=== PATIENT | female | born 1975 | race Caucasian/White ===

== ENCOUNTER → 2016-08-24 | Outpatient (CLI) | payer OTHER ==
[~2016-08-24] MED LIST: ALBUAER2 INH; CHOL400T PO; LEVO200T6 PO; LEVO50TA6 PO; LPR25 PO; MTR600X PO; SNG10 PO
[2016-08-24 09:54] LABS: C-REACTIVE PROTEIN 0.42 mg/dl (0-0.29); THYROID STIMULATING HORMONE 2.34 uIu/ml (0.300-4.500)
[2016-08-24 14:28] LABS: LYME DISEASE AB IGG NEG (NEG); LYME DISEASE AB IGM NEG (NEG)
[2016-08-28 14:28] LABS: CATECH NOREPINEPRHINE 499 pg/mL
== END | disposition home or self-care (01) ==
LOC: C.LABBC 07:27
PROVIDERS: ATTEND Internal Medicine Geriatric Medicine
DX: E03.9 Hypothyroidism, unspecified (principal); R53.83 Other fatigue; R00.2 Palpitations

== ENCOUNTER → 2016-08-25 | Outpatient (CLI) | payer OTHER ==
--- NOTE | 2016-08-25 10:53 | DIAGNOSTIC IMAGING REPORT ---
THYROID ULTRASOUND HISTORY: E03.9 [id number] [id number] COMPARISON: None. FINDINGS: Right lobe: 3.2 x 1.2 x 1.0 cm. The gland is heterogeneously hypoechoic. No definite nodules. Left lobe: 3.4 x 1.1 x 1.0 cm. The gland is heterogeneously hypoechoic. No definite nodules. Isthmus: 2 mm in thickness No nodules. IMPRESSION: Slightly atrophic and hypoechoic thyroid gland. No definite nodules. Electronically signed by: Rogelio Joyner M.D. 08/25/2016 10:52 AM Dictated Date/Time: 08/25/2016 10:51 AM
== END | disposition home or self-care (01) ==
LOC: C.ULTR 10:24
PROVIDERS: ATTEND Internal Medicine Geriatric Medicine
DX: R53.83 Other fatigue (principal); E03.4 Atrophy of thyroid (acquired)

== ENCOUNTER → 2016-10-01 | Outpatient (CLI) | payer OTHER ==
[~2016-10-01] MED LIST changes: +OPTIRAY 320 IV PRN
--- NOTE | 2016-10-01 17:34 | DIAGNOSTIC IMAGING REPORT ---
ABDOMEN AND PELVIS CT WITH IV AND ORAL CONTRAST CT DOSE: 1549.17 mGy.cm HISTORY: R10.9 Flank painK62.5 Bright red blood per [id number] Epigaster TECHNIQUE: Multiaxial CT images of the abdomen and pelvis were performed following the use of intravenous and oral contrast. COMPARISON STUDY: None. FINDINGS: Lung bases are clear liver is uniform in appearance. There is a solitary gallstone. Spleen is uniform. Pancreas is uniform. Kidneys are negative for hydronephrosis. There is a 1.5 mm nonobstructing mid pole left renal calcification. Bowel pattern is nonobstructive. Bladder is midline. Uterus is anteflexed. There is no evidence for ovarian enlargement. IMPRESSION: Negative study abdomen and pelvis. Delayed note is made of a gallstone as well as a punctate nonobstructing left renal calcification Normal appendix Electronically signed by: Brayan Lee M.D. 10/01/2016 5:32 PM Dictated Date/Time: 10/01/2016 5:30 PM
== END | disposition home or self-care (01) ==
LOC: C.CTS 15:36
PROVIDERS: ATTEND Family Medicine
DX: K62.5 Hemorrhage of anus and rectum (principal); Q82.8 Other specified congenital malformations of skin; R10.13 Epigastric pain; R19.8 Other specified symptoms and signs involving the digestive system and abdomen; N20.0 Calculus of kidney; K80.20 Calculus of gallbladder without cholecystitis without obstruction

== ENCOUNTER → 2017-05-03 | Outpatient (CLI) | payer OTHER ==
[~2017-05-03] MED LIST changes: -OPTIRAY 320 IV PRN
[2017-05-03 12:23] LABS: BASO % 0.3 %; BASO ABS # 0.02 K/uL (0-0.2); COMPLETE YES; EOS % 3.8 %; HEMATOCRIT 40.4 % (37-47); IG% 0.3 %; LYMPH % 34.5 %; LYMPH ABS # 2.25 K/uL (1.2-3.4); MEAN CELL VOLUME 86.1 fL (80-100); MEAN CORPUSCULAR HEMOGLOBIN 29.2 pg (25-34); MEAN CORPUSCULAR HGB CONC 33.9 g/dl (32-36); MEAN PLATELET VOLUME 8.8 fL (7.4-10.4); MONO % 7.2 %; NEUT % 53.9 %; PLATELET COUNT 231 K/uL (130-400); RED BLOOD COUNT 4.69 M/uL (4.2-5.4); WHITE BLOOD COUNT 6.52 K/uL (4.8-10.8)
[2017-05-03 12:55] LABS: ALT/SGPT 21 U/L (12-78); BLOOD UREA NITROGEN 19 mg/dl (7-18); BUN/CREATININE RATIO 21.8 (10-20); CALCIUM 9.4 mg/dl (8.5-10.1); CARBON DIOXIDE 29 mmol/L (21-32); CHLORIDE 104 mmol/L (98-107); CREATININE 0.88 mg/dl (0.60-1.20); GLUCOSE 104 mg/dl (70-99); POTASSIUM 4.2 mmol/L (3.5-5.1); SODIUM 137 mmol/L (136-145)
[2017-05-03 13:06] LABS: ALKALINE PHOSPHATASE 90 U/L (45-117); AST/SGOT 14 U/L (15-37)
== END | disposition home or self-care (01) ==
LOC: C.LABPBG 09:48
PROVIDERS: ATTEND Family Medicine
DX: R42 Dizziness and giddiness (principal)

== ENCOUNTER → 2017-05-25 | Outpatient (CLI) | payer OTHER ==
[~2017-05-25] MED LIST changes: +GADAVIST IV PRN
--- NOTE | 2017-05-25 08:11 | DIAGNOSTIC IMAGING REPORT ---
MRI CERVICAL SPINE COMBO CLINICAL HISTORY: CERVICALGIA, CHIARI MALFORMATION TECHNIQUE: Sagittal and axial T1, T2 and STIR images were obtained. Imaging was performed before and after the administration of 12 cc of intravenous Gadavist. COMPARISON STUDY: MRI the brain dated 05/05/2017 There are no suspicious areas of marrow replacement. There is a Chiari I malformation. The cerebellar tonsils extend 11 mm inferior to the foramen magnum. No syrinx is visualized. No cervical cord lesions are evident. C2-3: There is no evidence of disc bulge or focal herniation. There is no spinal or foraminal stenosis. C3-4: There is no evidence of disc bulge or focal herniation. There is no spinal or foraminal stenosis. C4-5: There are no disc bulges or focal herniations. There is no spinal or foraminal stenosis. C5-6 :There are no disc bulges or focal herniations. There is no spinal or foraminal stenosis. C6-7: There is no evidence of disc bulge or focal herniation. There is no evidence of spinal or foraminal stenosis. C7-T1: There is no evidence of disc bulge or focal herniation. There is no evidence of spinal or foraminal stenosis. There are a few tiny perineural cysts of doubtful clinical significance. There are mildly prominent bilateral cervical lymph nodes. Postcontrast images reveal no pathologically enhancing lesions. IMPRESSION: 1. Chiari I malformation 2. No evidence of syrinx 3. No disc herniations identified. No spinal or foraminal stenosis 4. Borderline enlarged bilateral cervical lymph nodes Electronically signed by: Augustine Ashby M.D. 05/25/2017 8:09 AM Dictated Date/Time: 05/25/2017 8:04 AM
== END | disposition home or self-care (01) ==
LOC: C.MRIBC 07:04
PROVIDERS: ATTEND Psychiatry & Neurology Neurology
DX: G93.5 Compression of brain (principal); M54.2 Cervicalgia

== ENCOUNTER → 2017-05-31 | Outpatient (CLI) | payer OTHER ==
[~2017-05-31] VITALS: Ht 167.6 cm; Wt 132.0 kg
[~2017-05-31] MED LIST changes: -GADAVIST IV PRN
[2017-05-31 13:17] VITALS: BP 131/83; PULSE 101; Ht 167.6 cm; Wt 132.0 kg
== END | disposition home or self-care (01) ==
LOC: C.NEUR 13:00
PROVIDERS: ATTEND Internal Medicine Pulmonary Disease
DX: G47.30 Sleep apnea, unspecified (principal); G93.5 Compression of brain

== ENCOUNTER → 2017-06-21 | Outpatient (CLI) | payer BC, OTHER ==
--- NOTE | 2017-06-22 05:55 | SPLIT NIGHT TECHNICIAN REPORT ---
[facility] Split Night Polysomnogram - Web Page Designer Report Study date: 06/21/2017 Referring Physician: Kendrick Cunha M.D. Name: STACIA OSHEAY Renita Web Page Designer: NORBERTO Pinzon. Date of : 1975 Height: 42 years, Height 5' 6" Sex: Female Weight: 290 lbs Age: 42 Neck Circum: 16.5 in BMI: Medications: 46.8 LEVOTHYROXINE 200 MCG, METOPROLOL 25 MG, TRIAMCINOLONE ACETONIDE 0.1%, UREA 40%, VENTOLIN HFA, VIT D 2000 UNIT Patient History 41 yr-old female here for a baseline study. She has a history of daytime sleepiness, waking up with a gasping sensation, and some morning headaches. Her Central scale is 13. The test was started on room air. ETCO2 testing was not utilized during this study. Room 7 Parameters Monitored NPSG: E1-M2, E2-M1, Fp1-M2, Fp2-M1, F3-M2, F4-M2, F4-M1, C3-M2, C4-M2, C4-M1, O1-M2, O2-M2, O2-M1, T3-M2, T4-M1, P3-M2, P4-M1, CHIN1, CHIN2, HR, EKG, Legs, PFLOW, SNOR, FLOW, CFLOW, Tidal Volume, THOR, ABDO, SpO2, PLTH, CPRESS, ETCO2 Wave, ETCO2, pH SLEEP SUMMARY DATA DIAGNOSTIC TREATMENT Lights Out: 10:39:38 PM 2:36:38 AM Lights On: 1:19:38 AM 5:10:08 AM Total Recording Time (TRT): 160.0 min. 153.5 min. Total Sleep Time (TST): 143.0 min. 114.5 min. NREM Time: 125.0 min. 66.5 min. REM Time: 18.0 min. 48.0 min. Sleep Period Time (SPT): 147.0 min. 143.5 min. Sleep Efficiency (SE): 89 % 75 % Sleep Latency: 13.0 min. 6.5 min. Arousal Index: 20.6 25.7 PAP Treatment Levels: 4, 6, 8, 9 * Optimal Pressure(s) SLEEP STAGING DATA DIAGNOSTIC TREATMENT Duration (min) TST % Duration (min) TST % Stage Wake: 17.0 min. -- 39.0 min. -- WASO: 4.0 min. -- 29.0 min. -- NREM: 125.0 min. 87 % 66.5 min. 58 % Stage N1: 9.0 min. 6 % 23.5 min. 21 % Stage N2: 94.5 min. 66 % 43.0 min. 38 % Stage N3: 21.5 min. 15 % 0.0 min. 0 % REM: 18.0 min. 13 % 48.0 min. 42 % POSITIONAL DATA Event Count Index Event Count Index Supine: N/A N/A N/A N/A Supine NREM: N/A N/A N/A N/A Supine REM: N/A N/A N/A N/A Non-Supine: 106 44.5 48 25.2 Non-Supine NREM: 76 36.5 42 37.9 Non-Supine REM: 30 100.0 6 7.5 AROUSAL SUMMARY DATA: Event Count Index Event Count Index Apnea Arousals: 0 0.0 0 0.5 Hypopnea Arousals: 21 8.8 18 9.4 Snore Arousals: 11 4.6 8 4.2 PLM Arousals: 1 0.4 1 0.5 Non-Specific Arousals: 15 6.3 24 12.6 Total Arousals: 49 20.6 49 25.7 MYOCLONUS (PLM) Event Count Index Event Count Index PLM: 13 5.5 4 2.1 PLM AROUSAL: 1 0.4 1 0.5 PLM W/O AROUSAL 13 5.5 3 1.6 PLM W/RESP EVENT 0 0.0 0 0.0 MYOCLONUS (PLM) Event Count Index Event Count Index LM: 1 11.7 15 7.9 LM AROUSAL: 1 0.4 0 0.0 LM W/O AROUSAL LM W/RESP EVENT LM NON SPECIFIC 32 13.4 14 7.3 HEART RATE DATA DIAGNOSTIC TREATMENT Sleep (bpm): 86 75 REM (bpm): 84 94 NREM (bpm): 91 92 Tachycardia Count: 0 0 Tachycardia Duration: 0.00 0 Bradycardia Count: 0 0 Bradycardia Duration: 0.00 0 DIAGNOSTIC PORTION TREATMENT PORTION RESPIRATORY DATA Event Count Index Event Count Index AHI: -- 44.5 -- 25.2 RDI: -- 44.5 -- 25 Obstructive Apnea: 0 0.0 0 0.0 Central Apnea: 0 0.0 1 0.5 Mixed Apnea: 0 0.0 0 0.0 Hypopnea: 106 44.5 47 24.6 RERA: 0 0.0 0 0.0 Total Apneas: 0 0.0 1 0.5 RESPIRATORY DATA REM NREM SLEEP REM NREM SLEEP Supine Position: Obstructive Apneas: N/A N/A N/A N/A N/A N/A Central Apneas: N/A N/A N/A N/A N/A N/A Mixed Apneas: N/A N/A N/A N/A N/A N/A Hypopneas: N/A N/A N/A N/A N/A N/A RERA N/A N/A N/A N/A N/A N/A Total Supine Events: N/A N/A N/A N/A N/A N/A Supine AHI: N/A N/A N/A N/A N/A N/A Supine RDI: N/A N/A N/A N/A N/A N/A REM NREM SLEEP REM NREM SLEEP Non-Supine Position: Obstructive Apneas: 0 0 0 0 0 0 Central Apneas: 0 0 0 1 0 1 Mixed Apneas: 0 0 0 0 0 0 Hypopneas: 30 76 106 5 42 47 RERA 0 0 0 0 0 0 Total Supine Events: 30 76 106 6 42 48 Supine AHI: 100.0 36.5 44.5 7.5 37.9 25.2 Supine RDI: 100.0 36.5 44.5 7.5 37.9 25.2 OXYGEN DESTAURATION DATA: Event Count Index Event Count Index REM Desaturations: 42 140.0 8 10.0 NREM Desaturations: 143 68.6 80 72.2 SNORE DATA DIAGNOSTIC TREATMENT Snore Time: 18.1 2:43:08 AM Snore TST%: 9 12 Snore Arousal Count: 11 8 Snore Arousal Index: 4.6 4.2 Desaturation Event Summary: Minimum %SpO2 Event Count Mean/Min/Max Duration(sec.) Desaturation Index % Time In Bed > 90 268 19.6 / 5.0 / 58.5 75.1 68.6 86 - 90 52 13.6 / 5.3 / 33.0 36.4 27.4 81 - 85 20 10.8 / 5.3 / 20.0 170.1 2.3 76 - 80 4 7.1 / 6.5 / 7.8 69.7 1.1 71 - 75 0 N/A 0.0 0.5 66 - 70 0 N/A 0.0 0.1 61 - 65 0 N/A 0.0 0.0 56 - 60 0 N/A 0.0 0.0 51 - 55 0 N/A 0.0 0.0 < 50 0 N/A 0.0 0.0 OXYGEN SATURATION DATA DIAGNOSTIC TREATMENT SpO2 Mean Sleep: 90 % 93 % SpO2 Mean REM: 84 % 94 % SpO2 Mean NREM: 91 % 92 % SpO2 Minimum Sleep: 68 % 82 % SpO2 Minimum REM: 68 % 85 % SpO2 Minimum NREM: 81 % 82 % Time Below 90% (TST): 51.5 11.5 Time Below 88% (TST): 18.0 2.9 Total REM NREM Awake <50% 0.0 min. 0.0 min. 0.0 min. 0.0 min. 51 - 60% 0.0 min. 0.0 min. 0.0 min. 0.0 min. 61 - 70% 0.3 min. 0.3 min. 0.0 min. 0.0 min. 71 - 80% 5.0 min. 5.0 min. 0.0 min. 0.0 min. 81 - 90% 92.7 min. 10.3 min. 80.4 min. 2.0 min. 91 - 100% 214.2 min. 50.3 min. 111.1 min. 52.8 min. Average 92 91 91 95 Minimum SpO2 68 68 81 85 Desaturation Event Index 57.2 45.5 69.9 30.0 # Desat. Events below 89% 140 41 98 1 Time(%) with Saturation below 89% 11.2 4.5 6.6 0.1 Time(min.) with Saturation below 89% 35.0 14.1 20.6 0.2 Recording Web Page Designer Comments: Ms. Oshea slept in the right, left, and prone positions. No cardiac arrhythmias or PLMs noted. No bruxism noted. Snoring was noted and scored as a 2-3 on a scale of 1 through 5. (0=no snoring, 5=snoring loud enough to be heard through a closed door or down the diez way) At 1:16 am, she met specific Split-Night criteria during the diagnostic portion of this study. CPAP was initiated at +4 CMH2O and up-titrated to a level of +9 CMH2O, Cflex 3. An AirFit F10 full face mask size small from [employer] was used during titration. There was a long period of time between when she qualified for CPAP and when the mask was in place. She could not tolerate the mask at first, and it took a while for her to keep it on. She awoke to use the restroom one time during the night. Ms. Oshea stated that she slept ok before having to wear the mask. The final report will be interpreted and signed by a sleep physician. The completed physician report will then be placed in the patient medical record. Therapy Event: Therapy (cm H20) 0 4 6 8 9 Total Time at Pressure (min.) 160.0 29.4 15.3 62.0 46.9 TST at Pressure (min.) 143.0 13.9 15.3 42.5 42.9 # Periods 1 1 1 1 1 Sleep Onset (min.) 13.0 6.5 0.0 0.0 0.0 REM Onset (min.) 95.5 N/A N/A 55.4 0.0 Sleep Efficiency % 89 47 100 68 91 Wakefulness (%) 10.6 52.8 0.0 31.5 8.5 Wakefulness (min.) 17.0 15.5 0.0 19.5 4.0 NREM 1 (%) 5.6 47.2 1.0 12.9 3.2 NREM 1 (min.) 9.0 13.9 0.1 8.0 1.5 NREM 2 (%) 59.1 0.0 99.0 45.0 0.0 NREM 2 (min.) 94.5 0.0 15.1 27.9 0.0 NREM 3 (%) 13.4 0.0 0.0 0.0 0.0 NREM 3 (min.) 21.5 0.0 0.0 0.0 0.0 REM (%) 11.3 0.0 0.0 10.7 88.3 REM (min.) 18.0 0.0 0.0 6.6 41.4 # Arousals 49 26 4 17 2 Arousal Index 20.6 112.6 15.7 24.0 2.8 # Snore 889 17 119 287 3 Snore Index 373.0 73.6 467.0 405.4 4.2 AHI 44.5 69.3 62.8 15.5 7.0 AHI Supine N/A N/A N/A N/A N/A AHI Non-Supine 44.5 69.3 62.8 15.5 7.0 NREM AHI 36.5 69.3 62.8 15.1 40.0 REM AHI 100.0 N/A N/A 18.2 5.8 RDI 44.5 69.3 62.8 15.5 7.0 # Obstructive 0 0 0 0 0 # Central Ap 0 0 0 0 1 # Mixed 0 0 0 0 0 # Hypopneas 106 16 16 11 4 RERAS 0 0 0 0 0 Total Respiratory Events 106 16 16 11 5 Time Below SpO2 89.00% (min.) 29.2 0.9 1.2 3.3 0.1 Mean NREM SpO2 (%) 91 92 91 92 94 Mean REM SpO2 (%) 84 N/A N/A 93 94 Mean Sleep SpO2 (%) 90 92 91 92 94 Min NREM SpO2 (%) 81 86 87 82 89 Min REM SpO2 (%) 68 N/A N/A 88 85 Position Supine (min.) 0.0 0.0 0.0 0.0 0.0 Position Non-supine (min.) 143.0 13.9 15.3 42.5 42.9 LM Index Sleep 17.2 34.7 7.8 4.2 8.4 LM Index NREM 17.3 34.7 7.8 5.0 80.0 LM Index REM 16.7 N/A N/A 0.0 5.8 Mean Heart Rate (bpm) 86 72 72 75 78 Min Heart Rate (bpm) 67 63 65 61 66 CPAP REPORT Therapy Detail Time / Page # Comment CPAP 4 cm H2O Full Face Mask Flex Pressure Relief Humidifier on 2:35:51 AM / pg. 632 SHE HAS BEEN ASLEEP FOR OVER 2 HOURS AND HER AHI IS ABOVE 40. THE LIGHTS ON PERIOD WAS LONG DUE TO HER ANXIETY AND TRYING TO GET USED TO THE MASK WITH THE STRAP CPAP 6 cm H2O Full Face Mask Flex Pressure Relief Humidifier on 3:05:59 AM / pg. 692 INCREASED FOR HYPOPNEAS CPAP 8 cm H2O Full Face Mask Flex Pressure Relief Humidifier on 3:21:16 AM / pg. 723 INCREASED FOR HYPOPNEAS CPAP 9 cm H2O Full Face Mask Flex Pressure Relief Humidifier on 4:23:15 AM / pg. 847 INCREASED FOR HYPOPNEAS
--- NOTE | 2017-06-23 00:37 | POLYSOMNOGRAPH REPORT ---
CLINICAL DATA: A 41-year-old female with a BMI of 46.8, referred by myself and Dr. Goel for a sleep study. She has daytime sleepiness, morning headaches and awakening gasping for breath at night. She also has Chiari malformation type 1. Her [place] Sleepiness score is 13/24. This was a split-night study. SLEEP ARCHITECTURE: For the diagnostic portion of the study, sleep period time was 147 minutes. Total sleep time was 143 minutes divided between 125 minutes of non-REM sleep and 18 minutes of REM sleep. Sleep latency was 13 minutes. Sleep efficiency was 89%. Sleep consisted of stage N1 6%, stage N2 66%, stage N3 15% and REM 13%. For the treatment portion of the study, sleep period time was 143 minutes. Total sleep time was 114.5 minutes divided between 66.5 minutes of non-REM sleep and 48 minutes of REM sleep. Sleep latency was 6.5 minutes. Sleep efficiency was 75%. Sleep consisted of stage N1 21%, stage N2 38% and REM 42%. AROUSAL DATA: Prior to treatment, 49 arousals were recorded for an index of 20.6 per hour. During treatment, 49 arousals were recorded for an index of 25.7 per hour. PERIODIC LIMB MOVEMENT DATA: Prior to treatment, 32 limb movements during sleep were noted for an index of 13.4 per hour. During treatment, 14 limb movements during sleep were noted for an index of 7.3 per hour. EKG: Heart rates ranged from 75-94 beats per minute. No arrhythmias were noted. RESPIRATORY DATA: Severe sleep apnea was documented prior to treatment. The diagnostic AHI was 44.5. There were 106 hypopneic episodes recorded prior to treatment. The AHI with treatment average was 25.2. There was 1 central apneic episode and 47 hypopneic episodes. OXIMETRY DATA: Nocturnal hypoxemia was seen prior to treatment. Oxygen andrew was 68% during REM prior to treatment. Mean saturation with treatment was 93%. TISSUE PACKER'S COMMENTS AND TREATMENT SUMMARY: The patient slept in the right, left and prone positions. Snoring was moderate, rated 2-3 on a scale of 1-5. At 1:16 a.m., she met split-night criteria. She used an AirFit F10 full facemask size small from [employer]. She was started on CPAP at 4 cm of water pressure and eventually titrated up to a final pressure setting of 9 cm water pressure, CFlex 3. At her final pressure setting, she slept for 42.9 minutes with an AHI of 7. She had difficulty using the mask and had to take a break from CPAP during the middle of the night and ended up that she took it off for the end of the study and slept for the rest of the study without CPAP. IMPRESSION: Severe sleep apnea/hypopnea with diagnostic AHI of 44.5 with nocturnal hypoxemia improved with CPAP 9 cm of water pressure, C-Flex 3, with an AirFit F10 full facemask size small from [employer]. RECOMMENDATIONS: The patient may benefit from use of CPAP 9 or 10 cm water pressure, C-Flex setting #3, or possibly auto-CPAP. Use of Lunesta for the first 2 weeks during CPAP treatment may be of benefit. Clinical correlation is needed. DIAMANTE
== END | disposition home or self-care (01) ==
LOC: C.NEUR 21:00
PROVIDERS: ATTEND Internal Medicine Pulmonary Disease
DX: G93.5 Compression of brain (principal); G47.30 Sleep apnea, unspecified

== ENCOUNTER 2017-08-18 09:58 | Emergency (ER) | payer BC, OTHER ==
[~2017-08-18] VITALS: Ht 167.6 cm; Wt 123.9 kg
[2017-08-18 10:03] VITALS: TEMP 37; Ht 167.6 cm; Wt 123.9 kg
[2017-08-18] MEDS ORDERED: MoRPHine SULFATE 4 MG/ML 1 ML CARP\\VIAL IV STA (10:48)
[2017-08-18] MEDS ORDERED: ACETAMINOPHEN 500 MG TAB PO STA (10:48)
[2017-08-18] MEDS ORDERED: CHOL2000 PO (10:56)
[2017-08-18] MEDS ORDERED: VNTHFA/IN INH (10:59)
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
[2017-08-18 11:39] LABS: HEMATOCRIT 41.8 % (37-47); HEMOGLOBIN 14.3 g/dL (12.0-16.0); MEAN CELL VOLUME 87.3 fL (80-100); MEAN CORPUSCULAR HEMOGLOBIN 29.9 pg (25-34); MEAN CORPUSCULAR HGB CONC 34.2 g/dl (32-36); MEAN PLATELET VOLUME 9.3 fL (7.4-10.4); PLATELET COUNT 217 K/uL (130-400); RED CELL DISTRIBUTION WIDTH CV 12.6 % (11.5-14.5); RED CELL DISTRIBUTION WIDTH SD 40.6 fL (36.4-46.3)
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
[2017-08-18 11:56] LABS: CALCIUM 9.3 mg/dl (8.5-10.1); CREATININE 0.8 mg/dl (0.60-1.20); POTASSIUM 3.9 mmol/L (3.5-5.1)
[2017-08-18] MEDS ORDERED: KETOROLAC TROMETHAMINE 30 MG/ML VIAL IV STA (11:57)
[2017-08-18] MEDS ORDERED: OPTIRAY 320 IV PRN (12:15)
[2017-08-18] MEDS ORDERED: ONDANSETRON INJ 2 MG/ML 2 ML VIAL ONE (12:31)
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
--- NOTE | 2017-08-18 13:40 | DIAGNOSTIC IMAGING REPORT ---
HEAD ANGIO WITH CONTRAST CLINICAL HISTORY: Trauma pain TECHNIQUE: Transaxial acquisition with multi axial reformatted images COMPARISON STUDY: None FINDINGS: All major intracranial vascular structures are unremarkable. All structures of the anterior, middle, and posterior cerebral circulation are unremarkable. No evidence for aneurysm or stenosis. No evidence for dissection. The vertebral basilar system is unremarkable. IMPRESSION: Normal study. No evidence for aneurysm or dissection. The above report was generated using voice recognition software. It may contain grammatical, syntax or spelling errors. Electronically signed by: Brayan Lee M.D. 08/18/2017 1:39 PM Dictated Date/Time: 08/18/2017 1:34 PM
[2017-08-18 14:13] VITALS: BP 128/92; PULSE 66; O2SAT 100
== END 2017-08-18 14:10 | disposition home or self-care (01) ==
LOC: C.EDB 10:02 → C.EDC 14:10
DX: R51 Headache (principal); V89.2XXA Person injured in unspecified motor-vehicle accident, traffic, initial encounter; H57.02 Anisocoria; G93.5 Compression of brain; G47.30 Sleep apnea, unspecified; I10 Essential (primary) hypertension; E03.9 Hypothyroidism, unspecified; M54.2 Cervicalgia; Z82.5 Family history of asthma and other chronic lower respiratory diseases; Z83.3 Family history of diabetes mellitus; Z80.7 Family history of other malignant neoplasms of lymphoid, hematopoietic and related tissues; Z82.49 Family history of ischemic heart disease and other diseases of the circulatory system; Z79.899 Other long term (current) drug therapy

== ENCOUNTER → 2017-08-26 | Outpatient (CLI) | payer OTHER ==
[~2017-08-26] VITALS: Ht 167.6 cm; Wt 123.6 kg
[~2017-08-26] MED LIST changes: -ALBUAER2 INH; +CHOL2000 PO; -CHOL400T PO; -MTR600X PO; -SNG10 PO; +VNTHFA/IN INH
[2017-08-26 15:13] VITALS: BP 110/84; PULSE 69; Ht 167.6 cm; Wt 123.6 kg
== END | disposition home or self-care (01) ==
LOC: C.NEUR 14:13
PROVIDERS: ATTEND Internal Medicine Pulmonary Disease
DX: G47.31 Primary central sleep apnea (principal); G93.5 Compression of brain; R51 Headache; Z88.1 Allergy status to other antibiotic agents; Z88.8 Allergy status to other drugs, medicaments and biological substances

== ENCOUNTER → 2017-10-12 | Outpatient (CLI) | payer OTHER ==
[2017-10-12 13:40] LABS: BLOOD UREA NITROGEN 19 mg/dl (7-18); CALCIUM 9.2 mg/dl (8.5-10.1); CARBON DIOXIDE 27 mmol/L (21-32); CREATININE 0.73 mg/dl (0.60-1.20); GLUCOSE 99 mg/dl (70-99); POTASSIUM 4.1 mmol/L (3.5-5.1); SODIUM 137 mmol/L (136-145)
== END | disposition home or self-care (01) ==
LOC: C.LABPBG 08:16
PROVIDERS: ATTEND Family Medicine
DX: E03.9 Hypothyroidism, unspecified (principal); I49.3 Ventricular premature depolarization

== ENCOUNTER → 2018-02-13 | Outpatient (CLI) | payer BC ==
--- NOTE | 2018-02-13 16:44 | DIAGNOSTIC IMAGING REPORT ---
CHEST 2 VIEWS ROUTINE CLINICAL HISTORY: COUGH dyspnea COMPARISON STUDY: 08/18/2017 FINDINGS: The bones soft tissues and hemidiaphragms are normal. The cardiomediastinal silhouette is normal. The lungs are clear. The pulmonary vasculature is normal. IMPRESSION: Negative chest. The above report was generated using voice recognition software. It may contain grammatical, syntax or spelling errors. Electronically signed by: Brayan Lee M.D. 02/13/2018 4:43 PM Dictated Date/Time: 02/13/2018 4:43 PM
== END | disposition home or self-care (01) ==
LOC: C.RADBC 16:23
PROVIDERS: ATTEND Family Medicine
DX: R05 Cough (principal); R06.02 Shortness of breath

== ENCOUNTER 2018-10-25 12:36 | Inpatient (IN) ==
[2018-10-25] MEDS ORDERED: ACETAMINOPHEN 1,000 MG/100 ML VIAL IV STA (13:46)
[2018-10-25 14:40] LABS: Basophils # (auto) 0.01 K/uL (0-0.2); Basophils % (auto) 0.1 %; Eosinophils % (auto) 1.2 %; Hematocrit (blood only) 36.6 % (37-47); Hemoglobin 12.5 g/dL (12.0-16.0); Immature Granulocytes # (auto) 0.03 K/uL (0.00-0.02); Immature Granulocytes % (auto) 0.4 %; Lymphocytes # (auto) 1.71 K/uL (1.2-3.4); Lymphocytes % (auto) 21.2 %; Mean Corpuscular Hgb Conc 34.2 g/dL (32-36); Mean Corpuscular Volume 85.7 fL (80-100); Mean Platelet Volume 9.1 fL (7.4-10.4); Monocytes # (auto) 0.82 K/uL (0.11-0.59); Monocytes % (auto) 10.2 %; Neutrophils % (auto) 66.9 %; Platelet Count 228 K/uL (130-400); RDW Coefficient of Variation 13.1 % (11.5-14.5); RDW Standard Deviation 41.4 fL (36.4-46.3); Red Blood Count 4.27 M/uL (4.2-5.4); White Blood Count 8.07 K/uL (4.8-10.8)
--- NOTE | 2018-10-25 14:56 | XRay Report ---
XR chest 2V routine CLINICAL HISTORY: Cough. COMPARISON STUDY: Chest radiograph September 06, 2018. FINDINGS: Lung volumes are normal. There is no consolidation or evidence for pulmonary edema. Cardiom ediastinal silhouette is stable. Pulmonary vascularity is normal. The appearance of the chest is unch anged. IMPRESSION: No acute cardiopulmonary findings. Electronically signed by: Rai Pierre M.D. 10/25/2018 2:54 PM
[2018-10-25 14:57] LABS: Albumin Level 3.1 gm/dl (3.4-5.0); Calcium 9.2 mg/dl (8.5-10.1); Creatinine Clr Calc Pharmacy 117.1 ml/min; Est GFR (Non-African American) 84.5; Potassium 3.9 mmol/L (3.5-5.1)
[2018-10-25 15:00] LABS: Albumin Globulin Ratio 0.7 (0.9-2); Bilirubin,Total 0.2 mg/dl (0.2-1); Globulin 4.6 gm/dl (2.5-4.0); Total Protein 7.7 gm/dl (6.4-8.2)
[2018-10-25] MEDS ORDERED: ONDANSETRON INJ 2 MG/ML 2 ML VIAL IV STA (15:01)
[2018-10-25 15:08] LABS: Influenza A virus by PCR Neg for Influ A (Neg); Influenza B virus by PCR Neg for Influ B (Neg)
[2018-10-25] MEDS ORDERED: IOVERSOL 100ml IV PRN (15:39)
--- NOTE | 2018-10-25 15:59 | CT Scan Report ---
CT OF THE RIGHT LOWER LEG WITH CONTRAST CLINICAL HISTORY: Right lower leg pain, redness and swelling. COMPARISON STUDY: Right lower extremity CT January 16, 2016. MRI of the right lower leg February 03, 2016. TECHNIQUE: Axial images of the right lower leg were obtained following intravenous injection of 93 cc Optiray 320 IV. Sagittal and coronal reconstructions were viewed. Automated exposure control was uti lized for the study. A dose lowering technique was utilized adhering to the principles of ALARA. FINDINGS: There is no evidence for osteomyelitis within the right tibia or fibula by CT. No fracture is present. there is no radiopaque foreign body. There is moderate subcutaneous edema of the right lo wer leg. There is no significant fluid along the fascia. No intramuscular abscess is noted. Note is m christy of a apparent small crescentic fluid collection overlying the anterior mid shaft of the right tib ia with possible mild anterior rim enhancement. This apparent collection measures 7.7 x 3.5 x 0.6 cm. This may reflect a developing abscess. No additional fluid collections are present. No mass is prese nt. Alignment of the right knee and ankle is anatomic. IMPRESSION: 1. Moderate subcutaneous edema of the right lower leg suggestive of cellulitis. Small crescentic flui d collection overlying the anterior mid shaft of the right tibia, measuring approximately 7.7 x 3.5 x 0.6 cm. Minimal anterior peripheral enhancement without well-defined wall. This suggests a phlegmon with possible small developing abscess. 2. No evidence for osteomyelitis within the right tibia or fibula. Electronically signed by: Rai Pierre M.D. 10/25/2018 3:58 PM
[2018-10-25] MEDS ORDERED: DAPTOmycin 350 MG in SYRINGE 0 ML IV ONE (16:15)
--- NOTE | 2018-10-25 17:47 | History & Physical Report ---
Date of Service October 25, 2018 Assessment & Plan (1) Cellulitis of leg, right: Recurrent with last hospitalization in 03/2018. - Will start daptomycin and Zosyn. Zosyn was used during last admission, and she was successfully treated with Augmentin as an outpatient. Prior cultures from 04/2018 grew MSSA. - CT RLE on 10/25 showed phlegmon vs. developing abscess - Follow blood cultures - Presently no concern for necrotizing fascitis given the CT results, but the patient reports the cellulitis has advanced even during her time in the ED, so it is clearly aggressive. - Surgery consult (2) Sepsis: SIRS 2/4 with tachycardia and fever with known source of infection. - Resolved with acetaminophen - Abx as above (3) Psoriasis: Long-standing issues with severe keratosis of the hands and feet. Recently diagnosed with psoriasis and undergoing PUVA therapy (UV light therapy) 2x/wk which has significantly improved the skin; however, she still has keratosis and cracking of the feet and hands. Likely etiology of her recurrent cellulitis. - Not on immunosuppressive therapy at this time - Outpatient follow up (4) Hypertension: BP low-normal in the ED in the setting of sepsis. - Continue Toprol tomorrow AM, but monitor BP and have low threshold to stop it for a few days. (5) Hypothyroidism: TSH was 0.4 in 08/2018 and in the fall as well. No signs/symptoms of hypo- /hyperthyroidism. - Continue home Synthroid 250 mcg (6) Asthma: No wheezing on exam; no concern for exacerbation. - DuoNebs PRN (7) DVT prophylaxis: Low risk per calculator - Early ambulation - Consider heparin after seen by surgery and no need for surgical intervention History of Present Illness Primary Care Provider: Denae Harper DO 43-year-old female with a history of recurrent RLE cellulitis infections, psoriasis, hypertension who presents with recurrent RLE cellulitis. Patient notes that she felt fevers, chills, and fatigue on Tuesday night going into Tuesday morning. However she does not have any right lower extremity redness or erythema until Tuesday morning. The redness remained fairly stable on the posterior calf over the weekend, and she started on antibiotics from her PCP on Tuesday. She reports compliance with the antibiotics (Keflex and Bactrim) since that time; however, the erythema and redness have quickly spread even on the oral antibiotics. She reports some nausea, but no vomiting. She denies any shortness of breath, chest pain, abdominal pain, diarrhea, constipation, changes in strength or sensation. She has had long-standing skin problems, which were recently diagnosed as psoriasis. She is not on any immunotherapy, but does get PUVA UV light therapy 2X/week which she reports is significantly improving the psoriasis on her hands and feet. Allergies Allergy/AdvReac Type Severity Reaction Status Date / Time clindamycin Allergy Intermediate Rash, Hives Verified 10/25/18 13:34 vancomycin Allergy Unknown ITCHING, Verified 10/25/18 13:34 RASH doxycycline Allergy Rash Verified 10/25/18 13:34 levofloxacin [From Levaquin] Allergy Rash Unverified 10/25/18 13:34 EQUATE MIGRAINE RELIEF Allergy Mild NUMB LIPS Uncoded 10/25/18 13:34 Home Medications Home Medications Medication Instructions Recorded Confirmed Type albuterol sulfate 2 puff INHALATION DIRECTED PRN 05/09/18 10/25/18 History cetirizine 10 mg PO QAM 05/09/18 10/25/18 History cholecalciferol (vitamin D3) 4,000 unit PO QAM 05/09/18 10/25/18 History [Vitamin D3] levothyroxine 50 mcg PO QAM 05/09/18 10/25/18 History levothyroxine 200 mcg PO QAM 05/09/18 10/25/18 History metoprolol succinate 25 mg PO QAM 05/09/18 10/25/18 History acetaminophen [Tylenol Extra 500 mg PO Q6H PRN 10/25/18 10/25/18 History Strength] cephalexin 500 mg PO TID 10/25/18 10/25/18 History ibuprofen [Motrin IB] 400 mg PO Q6H PRN 10/25/18 10/25/18 History sulfamethoxazole-trimethoprim 160 mg PO BID 10/25/18 10/25/18 History Past Med/Surg History Medical History Hypertension (Chronic) Hypothyroidism (Chronic) Asthma (Chronic) PVCs (premature ventricular contractions) (Chronic) Palpitation (Chronic 08/20/14) Psoriasis Arthritis (Resolved) Asthma (Resolved) Cellulitis (Resolved) Chest pain (Resolved) Hypothyroidism (Resolved) Surgical History History of incision and drainage To right brannon; 11/2015 S/P section 2009 Family History Mother Psoriasis Other No significant family history Social History Preferred Language: [place] Communication Ability: Effective Beliefs That Will Affect Care: None Current Living Situation: Family Feels Safe at Home: Yes Smoking Status: Never smoker Hx Alcohol Use: No Hx Substance Use: No Review of Systems Const: Constitutional: no fever, no chills and no sweats Eyes: Eyes: no diplopia ENMT: Ear, Nose, Mouth, Throat: no ear trauma, no nasal discharge and no dental pain Resp: Respiratory: no cough, no chest congestion and no dyspnea Cardio: Cardiovascular: no chest pain, no dyspnea on exertion, no palpitations and no syncope GI: Gastrointestinal: no abdominal pain, no belching, no constipation, no diarrhea/loose stools, no blood in stools and no melena MS: Musculoskeletal: no back pain, no joint pain and no muscle weakness Integ: Integumentary: no rash, no skin ulcer and no erythema Neuro: Neurologic: no generalized weakness, no loss of sensation, no numbness and no paresthesia Psych: Psychiatric: no depression and no anxiety Endo: Endocrine: no fatigue, no polydipsia and no polyphagia Physical Exam Vital Signs (Past 24 Hours): Last Vital Signs Temp 37.8 C H 10/25/18 15:41 Pulse 81 10/25/18 16:52 Resp 16 10/25/18 16:52 BP 106/65 10/25/18 16:52 Pulse Ox 98 10/25/18 16:52 Constitutional: WD/WN, vitals as above + acute distress and + morbidly obese Eyes: EOM intact bilaterally; no conjunctival abnormality ENMT: external ear and nose normal, oropharynx normal Neck: trachea midline, no thyromegaly normal visual inspection Respiratory: normal respiratory effort, lungs clear to auscultation no respiratory distress Cardiovascular: RRR, no murmur, no edema Gastrointestinal (Abdomen): Inspection/Auscultation: abdomen normal to inspection; abdomen not distended Musculoskeletal: no cyanosis or clubbing, extremities motor strength 5/5 Skin: + induration, + skin tightening and + nail pitting; no lesions, no ulcers, + abnormal skin elasticity and no fluctulance All in right lower extremity Neurologic: moves all extremities and awake Psychiatric: Orientation: alert, oriented to person and cooperative
--- NOTE | 2018-10-25 17:51 | Emergency Department Note ---
Entered by Nita López acting as a scribe for Geraldo Lewis MD History of Present Illness General Chief complaint: Fever Stated complaint: CELLULITUS OF RIGHT LEG - FEVER Source: patient History of Present Illness Provider complaint: right leg cellulitis Onset (ago): day(s) 5 Location: lower extremity and right Pain Consistency: + other (worsening) Maximum Pain Intensity: 6 Quality: + burning Associated symptoms: + cough and + fever/chills The patient is a 43 year old female who presents to the Emergency Room with complaints of worsening right leg cellulitis beginning 5 days ago. She describes the pain as a burn. She states that 2 days ago she was placed on Keflex and Bactrim. She also reports having fevers, chills, and an intermittent dry cough. She denies a history of diabetes. She states that she has been around her son who has had the flu but states that she tested negative at her PCPs office. She has had a prior history of infection to that leg requiring I&D. Home Medications Home Medications Medication Instructions Recorded Confirmed Type albuterol sulfate 2 puff INHALATION DIRECTED PRN 05/09/18 10/25/18 History cetirizine 10 mg PO QAM 05/09/18 10/25/18 History cholecalciferol (vitamin D3) 4,000 unit PO QAM 05/09/18 10/25/18 History [Vitamin D3] levothyroxine 50 mcg PO QAM 05/09/18 10/25/18 History levothyroxine 200 mcg PO QAM 05/09/18 10/25/18 History metoprolol succinate 25 mg PO QAM 05/09/18 10/25/18 History acetaminophen [Tylenol Extra 500 mg PO Q6H PRN 10/25/18 10/25/18 History Strength] cephalexin 500 mg PO TID 10/25/18 10/25/18 History ibuprofen [Motrin IB] 400 mg PO Q6H PRN 10/25/18 10/25/18 History sulfamethoxazole-trimethoprim 160 mg PO BID 10/25/18 10/25/18 History Allergies Allergy/AdvReac Type Severity Reaction Status Date / Time clindamycin Allergy Intermediate Rash, Hives Verified 10/25/18 13:34 vancomycin Allergy Unknown ITCHING, Verified 10/25/18 13:34 RASH doxycycline Allergy Rash Verified 10/25/18 13:34 levofloxacin [From Levaquin] Allergy Rash Unverified 10/25/18 13:34 EQUATE MIGRAINE RELIEF Allergy Mild NUMB LIPS Uncoded 10/25/18 13:34 Past Med/Surg History Medical History Hypertension (Chronic) Hypothyroidism (Chronic) Asthma (Chronic) PVCs (premature ventricular contractions) (Chronic) Palpitation (Chronic 08/20/14) Psoriasis Arthritis (Resolved) Asthma (Resolved) Cellulitis (Resolved) Chest pain (Resolved) Hypothyroidism (Resolved) Surgical History History of incision and drainage To right brannon; 11/2015 S/P section 2009 Family History Mother Psoriasis Other No significant family history Social History Preferred Language: Occitan Communication Ability: Effective Beliefs That Will Affect Care: None Current Living Situation: Family Feels Safe at Home: Yes Smoking Status: Never smoker Hx Alcohol Use: No Hx Substance Use: No Review of Systems See HPI for pertinent positives & negatives. and A total of 10 systems reviewed and were otherwise negative Physical Exam Vital Signs Vital Signs - 24 hr 10/25/18 12:38 10/25/18 14:09 10/25/18 14:59 Temperature 37.8 C H 38.1 C H Temperature Source Oral Oral Sepsis Recent Fever Within 48 Hours No Sepsis New/Unexplained Change in Mental Status No Sepsis Action Taken by Nursing No Action Required Pulse Rate 98 H Pulse Rate [Finger] 92 H Pulse Rhythm [Finger] Regular Pulse Strength [Finger] Normal Respiratory Rate 16 18 Respiratory Effort / Characteristics Non-Labored Spontaneous Respiratory Depth Normal Respiratory Pattern Regular Blood Pressure 137/90 Blood Pressure [Right Arm] 134/95 Blood Pressure Mean 105 Blood Pressure Mean [Right Arm] 108 Blood Pressure Position [Right Arm] Lying Pulse Oximetry 100 98 Oxygen Delivery Method Room Air Room Air 10/25/18 15:41 10/25/18 16:52 Temperature 37.8 C H Temperature Source Oral Sepsis Recent Fever Within 48 Hours Sepsis New/Unexplained Change in Mental Status Sepsis Action Taken by Nursing Pulse Rate Pulse Rate [Finger] 86 81 Pulse Rhythm [Finger] Pulse Strength [Finger] Respiratory Rate 19 16 Respiratory Effort / Characteristics Non-Labored Non-Labored Respiratory Depth Normal Normal Respiratory Pattern Blood Pressure Blood Pressure [Right Arm] 101/70 106/65 Blood Pressure Mean Blood Pressure Mean [Right Arm] 80 78 Blood Pressure Position [Right Arm] Pulse Oximetry 98 98 Oxygen Delivery Method Room Air Room Air Constitutional: Vital signs reviewed. Eyes: Pupils are equal round reactive to light. Conjunctiva are noninjected. ENT: Pharynx is clear without erythema or exudate. Mucous membranes are moist. Neck supple without meningeal signs. Respiratory: Clear to auscultation bilaterally. Breath sounds are equal bila terally. Cardiovascular: Regular rate and rhythm. No rubs or gallops. GI: Soft, nondistended and nontender. Bowel sounds are present. Musculoskeletal: Right lower extremity has diffuse erythema to the entire calf and brannon with significant tenderness posteriorly with slight fluctuance. Mild erythema to the lower thigh. Integumentary: No cyanosis. Neurological: The patient is awake and alert. No focal deficits. Psychiatric: Normal affect. Course 1349: The patient was evaluated in room C12B, and a complete history and physical examination were performed. 1613: I updated the patient and recommended hospitalization. She verbalized agreement and understanding of the treatment plan. 1623: I discussed the patient's case with Dr. Werner Valenzuela who will evaluate the patient for further management. Consultations Consultation #1: Dr. Werner Valenzuela Time: 16:23 Administered Medications Ioversol (Optiray 320 100ml) 93 ml IV ONCE PRN PRN Reason: Interaction Checking Stop: 10/29/18 15:38 Last Admin: 10/25/18 15:39 Dose: 93 ml Documented by: [id number] Discontinued Medications Acetaminophen (Ofirmev) 1,000 mg in 100 mls @ 400 mls/hr IV NOW STA Stop: 10/25/18 14:00 Last Infusion: 10/25/18 14:42 Dose: 0 mls/hr Documented by: [id number] Admin: 10/25/18 14:27 Dose: 400 mls/hr Documented by: [id number] Daptomycin 350 mg/ Syringe 7 mls @ 3.5 mls/min IV NOW ONE Stop: 10/25/18 16:16 Last Admin: 10/25/18 16:51 Dose: 3.5 mls/min Documented by: [id number] Ondansetron HCl (Zofran) 4 mg IV NOW STA Stop: 10/25/18 15:02 Last Admin: 10/25/18 15:22 Dose: 4 mg Documented by: [id number] Medical Decision Making Differential Diagnosis The patient is a 43 year old female who presents to the ED with cellulitis. Differential diagnosis includes cellulitis, abscess, DVT, outpatient treatment failure, and bacteremia. Medical Records Attestation: I reviewed the patient's medical records. I did perform a limited focused review of portions of the patient's old chart on the electronic medical record. The patient was seen here on September 06 for chest pain and was diagnosed with palpitations. Home Medications Current Medication List: was personally reviewed by me Laboratory Data Attestation: I reviewed the patient's lab results. Result diagrams: 10/25/18 14:23 10/25/18 14:23 Lab Results 10/25/18 10/25/18 10/25/18 Range/Units 14:12 14:23 14:23 WBC 8.07 (4.8-10.8) K/uL RBC 4.27 (4.2-5.4) M/uL Hgb 12.5 (12.0-16.0) g/dL Hct 36.6 L (37-47) % MCV 85.7 (80-100) fL MCH 29.3 (25-34) pg MCHC 34.2 (32-36) g/dL RDW Std Deviation 41.4 (36.4-46.3) fL RDW Coeff of Jesu 13.1 (11.5-14.5) % Plt Count 228 (130-400) K/uL MPV 9.1 (7.4-10.4) fL Immature Gran % (Auto) 0.4 % Neut % (Auto) 66.9 % Lymph % (Auto) 21.2 % [place] % (Auto) 10.2 % Eos % (Auto) 1.2 % Baso % (Auto) 0.1 % Immature Gran # (Auto) 0.03 H (0.00-0.02) K/uL Neut # (Auto) 5.40 (1.4-6.5) K/uL Lymph # (Auto) 1.71 (1.2-3.4) K/uL [place] # (Auto) 0.82 H (0.11-0.59) K/uL Eos # (Auto) 0.10 (0-0.5) K/uL Baso # (Auto) 0.01 (0-0.2) K/uL Sodium 138 (136-145) mmol/L Potassium 3.9 (3.5-5.1) mmol/L Chloride 105 (98-107) mmol/L Carbon Dioxide 27 (21-32) mmol/L Anion Gap 6.0 (3-11) BUN 9 (7-18) mg/dl Creatinine 0.84 (0.6-1.2) mg/dl Est Cr Clr Drug Dosing 117.1 ml/min Est GFR ( Amer) 98.0 Est GFR (Non-Af Amer) 84.5 BUN/Creatinine Ratio 11.0 (10-20) Glucose 104 H (70-99) mg/dl Lactate (0.4-2.0) mmol/L Calcium 9.2 (8.5-10.1) mg/dl Total Bilirubin 0.2 (0.2-1) mg/dl AST 40 H (15-37) U/L ALT 53 (12-78) U/L Alkaline Phosphatase 93 (45-117) U/L Total Protein 7.7 (6.4-8.2) gm/dl Albumin 3.1 L (3.4-5.0) gm/dl Globulin 4.6 H (2.5-4.0) gm/dl Albumin/Globulin Ratio 0.7 L (0.9-2) Influenza Type A (PCR) Neg for Influ A (Neg) Influenza Type B (PCR) Neg for Influ B (Neg) 10/25/18 Range/Units 14:23 WBC (4.8-10.8) K/uL RBC (4.2-5.4) M/uL Hgb (12.0-16.0) g/dL Hct (37-47) % MCV (80-100) fL MCH (25-34) pg MCHC (32-36) g/dL RDW Std Deviation (36.4-46.3) fL RDW Coeff of Jesu (11.5-14.5) % Plt Count (130-400) K/uL MPV (7.4-10.4) fL Immature Gran % (Auto) % Neut % (Auto) % Lymph % (Auto) % [place] % (Auto) % Eos % (Auto) % Baso % (Auto) % Immature Gran # (Auto) (0.00-0.02) K/uL Neut # (Auto) (1.4-6.5) K/uL Lymph # (Auto) (1.2-3.4) K/uL [place] # (Auto) (0.11-0.59) K/uL Eos # (Auto) (0-0.5) K/uL Baso # (Auto) (0-0.2) K/uL Sodium (136-145) mmol/L Potassium (3.5-5.1) mmol/L Chloride (98-107) mmol/L Carbon Dioxide (21-32) mmol/L Anion Gap (3-11) BUN (7-18) mg/dl Creatinine (0.6-1.2) mg/dl Est Cr Clr Drug Dosing ml/min Est GFR ( Amer) Est GFR (Non-Af Amer) BUN/Creatinine Ratio (10-20) Glucose (70-99) mg/dl Lactate 1.0 (0.4-2.0) mmol/L Calcium (8.5-10.1) mg/dl Total Bilirubin (0.2-1) mg/dl AST (15-37) U/L ALT (12-78) U/L Alkaline Phosphatase (45-117) U/L Total Protein (6.4-8.2) gm/dl Albumin (3.4-5.0) gm/dl Globulin (2.5-4.0) gm/dl Albumin/Globulin Ratio (0.9-2) Influenza Type A (PCR) (Neg) Influenza Type B (PCR) (Neg) Imaging Data Radiologist's Impression: Radiology results as stated below per my review and the radiologist's interpretation: XR chest 2V routine CLINICAL HISTORY: Cough. COMPARISON STUDY: Chest radiograph September 06, 2018. FINDINGS: Lung volumes are normal. There is no consolidation or evidence for pulmonary edema. Cardiomediastinal silhouette is stable. Pulmonary vascularity is normal. The appearance of the chest is unchanged. IMPRESSION: No acute cardiopulmonary findings. Electronically signed by: Rai Pierre M.D. 10/25/2018 2:[address] OF THE RIGHT LOWER LEG WITH CONTRAST CLINICAL HISTORY: Right lower leg pain, redness and swelling. COMPARISON STUDY: Right lower extremity CT January 16, 2016. MRI of the right lower leg February 03, 2016. TECHNIQUE: Axial images of the right lower leg were obtained following intravenous injection of 93 cc Optiray 320 IV. Sagittal and coronal reconstructions were viewed. Automated exposure control was utilized for the study. A dose lowering technique was utilized adhering to the principles of ALARA. FINDINGS: There is no evidence for osteomyelitis within the right tibia or fibula by CT. No fracture is present. there is no radiopaque foreign body. There is moderate subcutaneous edema of the right lower leg. There is no significant fluid along the fascia. No intramuscular abscess is noted. Note is made of a apparent small crescentic fluid collection overlying the anterior mid shaft of the right tibia with possible mild anterior rim enhancement. This apparent collection measures 7.7 x 3.5 x 0.6 cm. This may reflect a developing abscess. No additional fluid collections are present. No mass is present. Alignment of the right knee and ankle is anatomic. IMPRESSION: 1. Moderate subcutaneous edema of the right lower leg suggestive of cellulitis. Small crescentic fluid collection overlying the anterior mid shaft of the right tibia, measuring approximately 7.7 x 3.5 x 0.6 cm. Minimal anterior peripheral enhancement without well-defined wall. This suggests a phlegmon with possible small developing abscess. 2. No evidence for osteomyelitis within the right tibia or fibula. Electronically signed by: Rai Pierre M.D. 10/25/2018 3:58 PM Blood Pressure Blood Pressure Findings: Elevated blood pressure Blood Pressure Disposition: Referred to patients primary care provider OTIS Narrative I did evaluate the patient as noted above. The patient is presenting with flulike symptoms with an infection to her right leg. She has also been on antibiotics for this without any improvement. IV access was established. The patient was placed on a continuous radiation monitor. I did order PCR testing for flu which was negative. I did order and personally reviewed the images of the patient's chest x-ray as described above. There is no evidence of pneumonia. I did order and review the patient's blood work as noted in the electronic medical record. Her white blood cell count is not elevated. Lactate is normal. She is febrile here and was given Tylenol IV. I did order a CT of the lower extremity. I did review the images myself as well as the radiology report as described above. She has cellulitis to the leg with out evidence of abscess. There is a phlegmon. I did discuss the test results with her. She is not a candidate for Dalvance that she is allergic to vancomycin and she also has a phlegmon. I therefore recommended hospitalization for IV antibiotics. I did treat her with daptomycin IV. I did discuss case with the hospitalist and case therapist. Impression & Plan Cellulitis of leg, right, Phlegmon, Failure of outpatient treatment Discharge Plan Visit Data Chief Complaint: Fever Stated Complaint: CELLULITUS OF RIGHT LEG - FEVER ED Provider: Geraldo Lewis Discharge Problem: Cellulitis of leg, right, Phlegmon, Failure of outpatient treatment Patient Disposition: Being Evaluated by Hospitalist Forms Stand Alone Forms: My [facility] Prescriptions Prescriptions: No Action albuterol sulfate 0.63 mg/3 mL Solution For Nebulization 2 puff INHALATION DIRECTED PRN (Reason: Shortness Of Breath) RF: 0 cetirizine 10 mg tablet 10 mg PO QAM RF: 0 levothyroxine 50 mcg Tablet 50 mcg PO QAM RF: 0 levothyroxine 200 mcg Tablet 200 mcg PO QAM RF: 0 metoprolol succinate 25 mg tablet extended release 24 hr 25 mg PO QAM RF: 0 Vitamin D3 4,000 unit Capsule 4,000 unit PO QAM RF: 0 ibuprofen [Motrin IB] 200 mg Capsule 400 mg PO Q6H PRN (Reason: Pain) RF: 0 sulfamethoxazole-trimethoprim 800-160 mg tablet 160 mg PO BID RF: 0 acetaminophen [Tylenol Extra Strength] 500 mg Tablet 500 mg PO Q6H PRN (Reason: Pain) RF: 0 cephalexin 500 mg capsule 500 mg PO TID RF: 0 Referrals Referrals: Denae Harper, [Primary Care Provider] - The scribe's documentation has been prepared under my direction and personally reviewed by me in its entirety. I confirm that the note above accurately reflects all work, treatment, procedures, and medical decision making performed by me.
[2018-10-25] MEDS ORDERED: PIPERACILLIN/TAZOBACTAM 3.375 GM in DEXTROSE 5% 100 ML IV SCH (19:32)
[2018-10-25] MEDS ORDERED: PIPERACILL/TAZOBAC CONSULT ACTIVE PRN (19:32)
[2018-10-25] MEDS ORDERED: ONDANSETRON INJ 2 MG/ML 2 ML VIAL IV PRN (19:32)
[2018-10-25] MEDS ORDERED: DAPTOMYCIN CONSULT ACTIVE PRN (19:52)
[2018-10-25] MEDS ORDERED: PIPERACILLIN/TAZOBACTAM 4.5 GM in DEXTROSE 5% 100 ML IV ONE (20:00)
[2018-10-25] MEDS: ACETAMINOPHEN 325 MG TAB PO PRN (21:17)
[2018-10-26] MEDS: PIPERACILLIN/TAZOBACTAM 4.5 GM in DEXTROSE 5% 100 ML IV SCH ×3 (02:19→18:20)
[2018-10-26] MEDS: ALBUTEROL HFA 8 GM INHALER INH PRN ×2 (04:32→11:45)
[2018-10-26] MEDS: ACETAMINOPHEN 325 MG TAB PO PRN ×2 (04:35→11:45)
[2018-10-26] MEDS: LEVOTHYROXINE SODIUM 125 MCG TABLET PO SCH (05:48)
[2018-10-26 06:13] LABS: Hematocrit (blood only) 33.1 % (37-47); Hemoglobin 11.4 g/dL (12.0-16.0); Mean Corpuscular Hgb Conc 34.4 g/dL (32-36); Mean Corpuscular Volume 87.6 fL (80-100); Mean Platelet Volume 8.9 fL (7.4-10.4); Platelet Count 197 K/uL (130-400); RDW Coefficient of Variation 13.3 % (11.5-14.5); RDW Standard Deviation 42.9 fL (36.4-46.3); Red Blood Count 3.78 M/uL (4.2-5.4); White Blood Count 6.64 K/uL (4.8-10.8)
[2018-10-26 06:45] LABS: BUN Creatinine Ratio 13.3 (10-20); Calcium 8.1 mg/dl (8.5-10.1); Creatinine Clr Calc Pharmacy 117.9 ml/min; Est GFR (African American) 99.4; Est GFR (Non-African American) 85.8; Magnesium 2.1 mg/dl (1.8-2.4); Potassium 3.4 mmol/L (3.5-5.1)
[2018-10-26] MEDS ORDERED: PNEUMOCOCCAL POLYSACCHARIDES 25 MCG/0.5 ML VIAL/SYR IM ONE (08:00)
[2018-10-26] MEDS ORDERED: INFLUENZA VIRUS QUAD VACCINE 0.5 ML SYR IM ONE (08:00)
[2018-10-26] MEDS ORDERED: PNEUMOCOCCAL ADMINISTRATION CHARGE ONE (08:00)
[2018-10-26] MEDS ORDERED: INFLUENZA ADMINISTRATION CHARGE ONE (08:00)
[2018-10-26] MEDS: METOPROLOL SUCC 25MG EXT REL TAB PO SCH (10:20)
[2018-10-26] MEDS: CETIRIZINE HCL 10 MG TABLET PO SCH (10:21)
--- NOTE | 2018-10-26 15:18 | Hospitalist Progress Note ---
Date of Service October 26, 2018 Assessment & Plan (1) Cellulitis of leg, right: Recurrent with last hospitalization in 03/2018. - Will start daptomycin and Zosyn. Zosyn was used during last admission, and she was successfully treated with Augmentin as an outpatient. Prior cultures from 04/2018 grew MSSA. - CT RLE on 10/25 showed phlegmon vs. developing abscess - Follow blood cultures - Orthopedic surgery consult - Made NPO at midnight by Dr. Wilkinson; presume plan for I&D on 10/27 (2) Sepsis: SIRS 2/4 with tachycardia and fever with known source of infection. - Resolved with acetaminophen - Abx as above (3) Psoriasis: Long-standing issues with severe keratosis of the hands and feet. Recently diagnosed with psoriasis and undergoing PUVA therapy (UV light therapy) 2x/wk which has significantly improved the skin; however, she still has keratosis and cracking of the feet and hands. Likely etiology of her recurrent cellulitis. - Not on immunosuppressive therapy at this time - Outpatient follow up (4) Hypertension: BP low-normal in the ED in the setting of sepsis. - Continue Toprol tomorrow AM, but monitor BP and have low threshold to stop it for a few days. (5) Hypothyroidism: TSH was 0.4 in 08/2018 and in the fall as well. No signs/symptoms of hypo- /hyperthyroidism. - Continue home Synthroid 250 mcg (6) Asthma: No wheezing on exam; no concern for exacerbation. - Albuterol PRN (7) DVT prophylaxis: Low risk per calculator - Early ambulation - Consider heparin after seen by surgery and no need for surgical intervention Subjective Redness improving on the anterior brannon. Posteriorly, it is somewhat red and indurated still. Reports no fevers/chills, chest pain, shortness of breath, abdominal pain, nausea, or vomiting. Review of Systems Constitutional: no fever, no chills and no sweats Eyes: no diplopia Ear, Nose, Mouth, Throat: no ear trauma, no nasal discharge and no dental pain Respiratory: no cough, no chest congestion and no dyspnea Cardiovascular: no chest pain, no dyspnea on exertion, no palpitations and no syncope Gastrointestinal: no abdominal pain, no belching, no constipation, no diarrhea/loose stools, no blood in stools and no melena Musculoskeletal: no back pain, no joint pain and no muscle weakness Integumentary: + rash, + erythema and + skin swelling; no bleeding lesions and no skin ulcer Neurologic: no generalized weakness, no loss of sensation, no numbness and no paresthesia Psychiatric: no depression and no anxiety Endocrine: no fatigue, no polydipsia and no polyphagia Physical Exam Constitutional: WD/WN, vitals as above + acute distress and + morbidly obe se Eyes: EOM intact bilaterally; no conjunctival abnormality ENMT: external ear and nose normal, oropharynx normal Neck: trachea midline, no thyromegaly normal visual inspection Respiratory: normal respiratory effort, lungs clear to auscultation no respiratory distress Cardiovascular: RRR, no murmur, no edema Gastrointestinal (Abdomen): Inspection/Auscultation: abdomen normal to inspection; abdomen not distended Musculoskeletal: no cyanosis or clubbing, extremities motor strength 5/5 Skin: + induration, + skin tightening and + nail pitting; no lesions, no ulcers, + abnormal skin elasticity and no fluctulance Neurologic: moves all extremities and awake Psychiatric: Orientation: alert, oriented to person and cooperative Results & Data Vital Signs (Past 12 Hours) Vital Signs Temp Pulse Resp BP Pulse Ox 10/26/18 08:02 36.4 C L 75 18 116/75 98
--- NOTE | 2018-10-26 15:57 | Orthopedic Consultation ---
Date of Consultation October 26, 2018 Assessment & Plan (1) Cellulitis of leg, right: No surgical intervention, we will continue to monitor closely at this time. Patient currently improving with IV antibiotics. Recommend nonweightbearing right lower extremity, ice and elevation. Continue with IV antibiotics per medical team. We will follow with you. Thank you for the consultation. History of Present Illness Reason for Consultation: Right lower extremity cellulitis Attending Physician: Elier Mcpherson MD History of Present Illness Patient is a 43-year-old female who presented to [facility] secondary to worsening lower extremity cellulitis and was admitted for further inpatient treatment. Patient states that her symptoms began on Tuesday for 2018 progressively worsened over this past week, she was treated with p.o. antibiotics by her PCP and subsequently went to [facility] emergency department when her symptoms worsened. Currently denies fevers and chills. Denies numbness tingling to her right lower extremity. Previously admitted in March 2018 for similar complaints and treated with IV antibiotics. Allergies Allergy/AdvReac Type Severity Reaction Status Date / Time clindamycin Allergy Intermediate Rash, Hives Verified 10/25/18 13:34 vancomycin Allergy Unknown ITCHING, Verified 10/25/18 13:34 RASH doxycycline Allergy Rash Verified 10/25/18 13:34 levofloxacin [From Levaquin] Allergy Rash Unverified 10/25/18 13:34 EQUATE MIGRAINE RELIEF Allergy Mild NUMB LIPS Uncoded 10/25/18 13:34 Home Medications Home Medications Medication Instructions Recorded Confirmed Type albuterol sulfate 2 puff INHALATION DIRECTED PRN 05/09/18 10/25/18 History cetirizine 10 mg PO QAM 05/09/18 10/25/18 History cholecalciferol (vitamin D3) 4,000 unit PO QAM 05/09/18 10/25/18 History [Vitamin D3] levothyroxine 50 mcg PO QAM 05/09/18 10/25/18 History levothyroxine 200 mcg PO QAM 05/09/18 10/25/18 History metoprolol succinate 25 mg PO QAM 05/09/18 10/25/18 History acetaminophen [Tylenol Extra 500 mg PO Q6H PRN 10/25/18 10/25/18 History Strength] cephalexin 500 mg PO TID 10/25/18 10/25/18 History ibuprofen [Motrin IB] 400 mg PO Q6H PRN 10/25/18 10/25/18 History sulfamethoxazole-trimethoprim 160 mg PO BID 10/25/18 10/25/18 History cephalexin 500 mg PO QID #40 cap 10/30/18 Rx Patient History Medical History Hypertension (Chronic) Hypothyroidism (Chronic) Asthma (Chronic) PVCs (premature ventricular contractions) (Chronic) Palpitation (Chronic 08/20/14) Psoriasis Arthritis (Resolved) Asthma (Resolved) Cellulitis (Resolved) Chest pain (Resolved) Hypothyroidism (Resolved) Surgical History History of incision and drainage To right brannon; 11/2015 S/P section 2009 Family History Mother Psoriasis Other No significant family history Social History Preferred Language: Hungarian Communication Ability: Effective Silk Screener Required: No Beliefs That Will Affect Care: None Current Living Situation: Spouse Other Information That Helps Us Care for You: No Feels Safe at Home: Yes Safety Concerns: Feels Safe At This Time Smoking Status: Never smoker Hx Alcohol Use: No Hx Substance Use: No Physical Exam Physical Exam: RLE NVSI +EHL/FHL/TA/GS SILT grossly, +2 DP pulse, compartments soft, edematous, there is erythema and edema present circumferential right lower extremity most severe overlying the posterior aspect. There is no open wounds or drainage present. Skin is intact. Compartments are compressible. Constitutional: WD/WN, vitals as above Results & Data Vital Signs (Past 12 Hours) Vital Signs Temp Pulse Resp BP Pulse Ox 10/26/18 15:29 37.2 C 78 18 118/79 96 10/26/18 08:02 36.4 C L 75 18 116/[address] OF THE RIGHT LOWER LEG WITH CONTRAST CLINICAL HISTORY: Right lower leg pain, redness and swelling. COMPARISON STUDY: Right lower extremity CT January 16, 2016. MRI of the right lower leg February 03, 2016. TECHNIQUE: Axial images of the right lower leg were obtained following intravenous injection of 93 cc Optiray 320 IV. Sagittal and coronal recons tructions were viewed. Automated exposure control was utilized for the study. A dose lowering technique was utilized adhering to the principles of ALARA. FINDINGS: There is no evidence for osteomyelitis within the right tibia or fibula by CT. No fracture is present. there is no radiopaque foreign body. There is moderate subcutaneous edema of the right lower leg. There is no significant fluid along the fascia. No intramuscular abscess is noted. Note is made of a apparent small crescentic fluid collection overlying the anterior mid shaft of the right tibia with possible mild anterior rim enhancement. This apparent collection measures 7.7 x 3.5 x 0.6 cm. This may reflect a developing abscess. No additional fluid collections are present. No mass is present. Alignment of the right knee and ankle is anatomic. IMPRESSION: 1. Moderate subcutaneous edema of the right lower leg suggestive of cellulitis. Small crescentic fluid collection overlying the anterior mid shaft of the right tibia, measuring approximately 7.7 x 3.5 x 0.6 cm. Minimal anterior peripheral enhancement without well-defined wall. This suggests a phlegmon with possible small developing abscess. 2. No evidence for osteomyelitis within the right tibia or fibula.
[2018-10-26] MEDS ORDERED: DAPTOmycin 350 MG in SYRINGE 0 ML IV SCH (16:00)
[2018-10-26] MEDS ORDERED: CALCIUM CARBONATE 500 MG CHEWABLE TAB PO PRN (18:35)
[2018-10-27] MEDS: PIPERACILLIN/TAZOBACTAM 4.5 GM in DEXTROSE 5% 100 ML IV SCH ×3 (01:52→18:01)
[2018-10-27] MEDS: ACETAMINOPHEN 325 MG TAB PO PRN ×2 (06:35→16:00)
[2018-10-27] MEDS: LEVOTHYROXINE SODIUM 125 MCG TABLET PO SCH (06:35)
[2018-10-27 06:50] LABS: Hematocrit (blood only) 37.6 % (37-47); Hemoglobin 12.6 g/dL (12.0-16.0); Mean Corpuscular Hgb Conc 33.5 g/dL (32-36); Mean Corpuscular Volume 88.1 fL (80-100); Mean Platelet Volume 8.6 fL (7.4-10.4); Platelet Count 246 K/uL (130-400); RDW Coefficient of Variation 13.3 % (11.5-14.5); RDW Standard Deviation 42.7 fL (36.4-46.3); Red Blood Count 4.27 M/uL (4.2-5.4); White Blood Count 7.16 K/uL (4.8-10.8)
[2018-10-27 07:20] LABS: Calcium 9.3 mg/dl (8.5-10.1); Creatinine Clr Calc Pharmacy 123.9 ml/min; Est GFR (African American) 105.5; Potassium 4.3 mmol/L (3.5-5.1)
[2018-10-27] MEDS: METOPROLOL SUCC 25MG EXT REL TAB PO SCH (07:56)
[2018-10-27] MEDS: CETIRIZINE HCL 10 MG TABLET PO SCH (07:56)
--- NOTE | 2018-10-27 09:47 | Orthopedic Progress Note ---
Date of Service October 27, 2018 Assessment & Plan (1) Cellulitis of leg, right: Erythema seems to be improving. Will discuss with Dr. Steinberg and he will be in to see patient to see if surgical intervention will be needed at this point. Continue antibiotics per primary team. Will follow. Will keep NPO for now pending eval by Dr. Steinberg. Subjective Patient seen resting in bed. She has no current complaints. States the erythema has improved since yesterday. Is currently NPO. Physical Exam Physical Exam: Circumferential erythema right lower leg. Seems to be improved compared to markings on her leg. Mild to moderate tenderness. No definitive palpable abscess. N/V status and sensation intact. Results & Data Vital Signs (Past 12 Hours) Vital Signs Temp Pulse Resp BP Pulse Ox 10/27/18 07:16 37.2 C 79 18 113/75 97 10/26/18 23:19 37.5 C 81 20 123/83 93
--- NOTE | 2018-10-27 16:24 | Hospitalist Progress Note ---
Date of Service October 27, 2018 Assessment & Plan (1) Cellulitis of leg, right: Recurrent with last hospitalization in 03/2018. - Was on daptomycin and Zosyn. Zosyn was used during last admission, and she was successfully treated with Augmentin as an outpatient. Prior cultures from 04/2018 grew MSSA. - CT RLE on 10/25 showed phlegmon vs. developing abscess - Orthopedic surgery consulted - No indication for surgery at this time - Daptomycin stopped on 10/27 to follow prior cultures. Will taper abx as able. (2) Sepsis: SIRS 2/4 with tachycardia and fever with known source of infection. - Resolved with acetaminophen - Abx as above (3) Psoriasis: Long-standing issues with severe keratosis of the hands and feet. Recently diagnosed with psoriasis and undergoing PUVA therapy (UV light therapy) 2x/wk which has significantly improved the skin; however, she still has keratosis and cracking of the feet and hands. Likely etiology of her recurrent cellulitis. - Not on immunosuppressive therapy at this time - Outpatient follow up (4) Hypertension: BP low-normal in the ED in the setting of sepsis. - Continue Toprol (5) Hypothyroidism: TSH was 0.4 in 08/2018 and in the fall as well. No signs/symptoms of hypo- /hyperthyroidism. - Continued home Synthroid 250 mcg (6) Asthma: No wheezing on exam; no concern for exacerbation. - Albuterol PRN (7) DVT prophylaxis: Lovenox Subjective 43yo F w/ hx of cellulitis who presents with such. Doing well today. Redness reducing. Reports no fevers/chills, chest pain, shortness of breath, abdominal pain, nausea, or vomiting. Review of Systems Integumentary: + rash, + erythema and + skin swelling; no bleeding lesions and no skin ulcer Physical Exam Constitutional: WD/WN, vitals as above + acute distress and + morbidly obese Eyes: EOM intact bilaterally; no conjunctival abnormality ENMT: external ear and nose normal, oropharynx normal Neck: trachea midline, no thyromegaly normal visual inspection Respiratory: normal respiratory effort, lungs clear to auscultation no respiratory distress Cardiovascular: RRR, no murmur, no edema Gastrointestinal (Abdomen): Inspection/Auscultation: abdomen normal to inspection; abdomen not distended Musculoskeletal: no cyanosis or clubbing, extremities motor strength 5/5 Skin: + induration, + skin tightening and + nail pitting; no lesions, no ulcers, + abnormal skin elasticity and no fluctulance Neurologic: moves all extremities and awake Psychiatric: Orientation: alert, oriented to person and cooperative Results & Data Vital Signs (Past 12 Hours) Vital Signs Temp Pulse Resp BP BP Pulse Ox 10/27/18 15:06 36.5 C 76 18 120/80 95 10/27/18 07:16 37.2 C 79 18 113/75 97
[2018-10-28] MEDS: PIPERACILLIN/TAZOBACTAM 4.5 GM in DEXTROSE 5% 100 ML IV SCH ×3 (01:41→17:35)
[2018-10-28] MEDS: LEVOTHYROXINE SODIUM 125 MCG TABLET PO SCH (06:10)
[2018-10-28 07:06] LABS: Mean Corpuscular Hgb Conc 33.3 g/dL (32-36); Mean Platelet Volume 8.8 fL (7.4-10.4); Platelet Count 253 K/uL (130-400); RDW Coefficient of Variation 13.1 % (11.5-14.5); RDW Standard Deviation 42.1 fL (36.4-46.3); Red Blood Count 4.14 M/uL (4.2-5.4)
[2018-10-28 07:29] LABS: INR 1.1 (0.9-1.1); Partial Thromboplastin Time 28.1 Seconds (21.0-31.0); Prothrombin Time 11.3 Seconds (9.0-12.0)
[2018-10-28 07:42] LABS: BUN Creatinine Ratio 13.5 (10-20); Calcium 9.3 mg/dl (8.5-10.1); Creatinine Clr Calc Pharmacy 119.4 ml/min; Est GFR (African American) 100.9; Magnesium 2.3 mg/dl (1.8-2.4); Potassium 4.2 mmol/L (3.5-5.1)
[2018-10-28] MEDS: CETIRIZINE HCL 10 MG TABLET PO SCH (09:22)
[2018-10-28] MEDS: METOPROLOL SUCC 25MG EXT REL TAB PO SCH (09:22)
[2018-10-28] MEDS: ENOXAPARIN INJ 40 MG/0.4 ML SYR SQ SCH (09:23)
--- NOTE | 2018-10-28 10:10 | Orthopedic Progress Note ---
Date of Service October 28, 2018 Assessment & Plan (1) Cellulitis of leg, right: Erythema continues to improve. Continue antibiotics per primary team. Patient is orthopedically stable at this point. We will sign off. Call with any questions or concerns. Subjective Patient seen resting in bed. She has no current complaints. States the erythema has improved since yesterday. Physical Exam Physical Exam: Erythema has improved from yesterday. toes are mobile, n/v status and sensation intact. No areas of fluctuance noted. Results & Data Vital Signs (Past 12 Hours) Vital Signs Temp Pulse Pulse Resp BP BP Pulse Ox 10/28/18 07:49 37.0 C 76 18 128/72 96 10/27/18 22:55 37.1 C 78 18 127/87 99
--- NOTE | 2018-10-28 11:47 | Infectious Disease Consult ---
Date of Consultation October 28, 2018 Assessment & Plan (1) Cellulitis of leg, right: Patient with cellulitis of the right leg with phlegmon formation, responding to current IV antibiotics. Patient will need another 24-48 hours of IV antibiotic, then likely transition to oral cephalexin. Patient appears to be a good candidate for chronic suppressive therapy with oral antibiotics to prevent further recurrences of cellulitis. Will discuss with all involved. Will follow. (2) Phlegmon: History of Present Illness Reason for Consultation: Antibiotic recommendations in recurrent cellulitis Attending Physician: Elier Mcpherson MD History of Present Illness 43-year-old female known to the infectious disease service with history of psoriasis, asthma, hypothyroidism, hypertension, with recurrent right lower extremity cellulitis. She was admitted on October 25 with several day history of fever, chills, and progressively worsening right lower extremity redness and swelling with pain. She was given oral cephalexin and Bactrim without improvement. She was admitted to the hospital and started on vancomycin and Zo syn. She has noted clinical improvement. CT scan of the leg showed what appeared to be phlegmon without true abscess formation. Has been seen by orthopedic surgery and no surgical intervention is planned. Allergies Allergy/AdvReac Type Severity Reaction Status Date / Time clindamycin Allergy Intermediate Rash, Hives Verified 10/25/18 13:34 vancomycin Allergy Unknown ITCHING, Verified 10/25/18 13:34 RASH doxycycline Allergy Rash Verified 10/25/18 13:34 levofloxacin [From Levaquin] Allergy Rash Unverified 10/25/18 13:34 EQUATE MIGRAINE RELIEF Allergy Mild NUMB LIPS Uncoded 10/25/18 13:34 Home Medications Home Medications Medication Instructions Recorded Confirmed Type albuterol sulfate 2 puff INHALATION DIRECTED PRN 05/09/18 10/25/18 History cetirizine 10 mg PO QAM 05/09/18 10/25/18 History cholecalciferol (vitamin D3) 4,000 unit PO QAM 05/09/18 10/25/18 History [Vitamin D3] levothyroxine 50 mcg PO QAM 05/09/18 10/25/18 History levothyroxine 200 mcg PO QAM 05/09/18 10/25/18 History metoprolol succinate 25 mg PO QAM 05/09/18 10/25/18 History acetaminophen [Tylenol Extra 500 mg PO Q6H PRN 10/25/18 10/25/18 History Strength] cephalexin 500 mg PO TID 10/25/18 10/25/18 History ibuprofen [Motrin IB] 400 mg PO Q6H PRN 10/25/18 10/25/18 History sulfamethoxazole-trimethoprim 160 mg PO BID 10/25/18 10/25/18 History Patient History Medical History Hypertension (Chronic) Hypothyroidism (Chronic) Asthma (Chronic) PVCs (premature ventricular contractions) (Chronic) Palpitation (Chronic 08/20/14) Psoriasis Arthritis (Resolved) Asthma (Resolved) Cellulitis (Resolved) Chest pain (Resolved) Hypothyroidism (Resolved) Surgical History History of incision and drainage To right brannon; 11/2015 S/P section 2009 Family History Mother Psoriasis Other No significant family history Social History Preferred Language: Mongolian Communication Ability: Effective Gluing Machine Feeder Required: No Beliefs That Will Affect Care: None Current Living Situation: Spouse Other Information That Helps Us Care for You: No Feels Safe at Home: Yes Safety Concerns: Feels Safe At This Time Smoking Status: Never smoker Hx Alcohol Use: No Hx Substance Use: No Review of Systems Review of Systems: All systems reviewed & are unremarkable except as noted in HPI & below Physical Exam Constitutional: WD/WN, vitals as above + morbidly obese and comfortable; no acute distress Eyes: PERRL, conjunctivae normal, anicteric sclerae ENMT: external ear and nose normal, oropharynx normal Neck: trachea midline, no thyromegaly neck nontender Respiratory: normal respiratory effort, lungs clear to auscultation normal percussion; does not use accessory muscles Cardiovascular: Rate/Rhythm: regular rate and regular rhythm Heart Sounds: normal S1 and normal S2; no gallop, no murmur and no cardiac rub Vessels: normal peripheral pulses; no JVD Gastrointestinal (Abdomen): normal bowel sounds, soft, nontender, no hepatosplenomegaly Musculoskeletal: no cyanosis or clubbing, extremities motor strength 5/5 Spine: thoracic spine normal to inspection and lumbar spine normal to inspection; no cervical spinal tenderness Skin: normal turgor and + erythema (Right calf area extending around anteriorly); no rashes Neurologic: patellar DTR's 2+ bilat, sensation intact no focal motor deficits Psychiatric: A+Ox3, euthymic affect Orientation: cooperative Lymphatic: no cervical or axillary lymphadenopathy no inguinal lymphadenopathy Results & Data Vital Signs (Past 12 Hours) Vital Signs Temp Pulse Resp BP Pulse Ox 10/28/18 07:49 37.0 C 76 18 128/72 96 Laboratory Results Short CBC 10/28/18 Range/Units 06:21 WBC 5.80 (4.8-10.8) K/uL Hgb 12.0 (12.0-16.0) g/dL Hct 36.0 L (37-47) % Plt Count 253 (130-400) K/uL BMP 10/28/18 06:21 Sodium 137 Potassium 4.2 Chloride 103 Carbon Dioxide 29 BUN 11 Creatinine 0.82 Glucose 107 H Calcium 9.3 Diagnostic Findings Microbiology 10/25/18 14:23 Blood Blood Culture - Preliminary No growth to date. 10/25/18 14:23 Blood Blood Culture - Preliminary No growth to date. CT OF THE RIGHT LOWER LEG WITH CONTRAST CLINICAL HISTORY: Right lower leg pain, redness and swelling. COMPARISON STUDY: Right lower extremity CT January 16, 2016. MRI of the right lower leg February 03, 2016. TECHNIQUE: Axial images of the right lower leg were obtained following intravenous injection of 93 cc Optiray 320 IV. Sagittal and coronal reconstructions were viewed. Automated exposure control was utilized for the study. A dose lowering technique was utilized adhering to the principles of ALARA. FINDINGS: There is no evidence for osteomyelitis within the right tibia or fibula by CT. No fracture is present. there is no radiopaque foreign body. There is moderate subcutaneous edema of the right lower leg. There is no significant fluid along the fascia. No intramuscular abscess is noted. Note is made of a apparent small crescentic fluid collection overlying the anterior mid shaft of the right tibia with possible mild anterior rim enhancement. This apparent collection measures 7.7 x 3.5 x 0.6 cm. This may reflect a developing abscess. No additional fluid collections are present. No mass is present. Alignment of the right knee and ankle is anatomic. IMPRESSION: 1. Moderate subcutaneous edema of the right lower leg suggestive of cellulitis. Small crescentic fluid collection overlying the anterior mid shaft of the right tibia, measuring approximately 7.7 x 3.5 x 0.6 cm. Minimal anterior peripheral enhancement without well-defined wall. This suggests a phlegmon with possible small developing abscess. 2. No evidence for osteomyelitis within the right tibia or fibula. Electronically signed by: Rai Pierre M.D. 10/25/2018 3:58 PM Dictated: 10/25/18 1546 Transcribed: 10/25/18 1546
--- NOTE | 2018-10-28 15:05 | Hospitalist Progress Note ---
Date of Service October 28, 2018 Assessment & Plan (1) Cellulitis of leg, right: Recurrent with last hospitalization in 03/2018. - Was on daptomycin and Zosyn. Zosyn was used during last admission, and she was successfully treated with Augmentin as an outpatient. Prior cultures from 04/2018 grew MSSA. - CT RLE on 10/25 showed phlegmon vs. developing abscess - Orthopedic surgery consulted - No indication for surgery at this time - Daptomycin stopped on 10/27 to follow prior cultures. - Seen by ID on 10/28; plan for IV abx x 1-2 more days, then switch to cephalexin for likely somewhat prolonged course, then possible chronic suppression therapy. (2) Sepsis: SIRS 2/4 with tachycardia and fever with known source of infection. - Resolved with acetaminophen - Abx as above (3) Psoriasis: Long-standing issues with severe keratosis of the hands and feet. Recently diagnosed with psoriasis and undergoing PUVA therapy (UV light therapy) 2x/wk which has significantly improved the skin; however, she still has keratosis and cracking of the feet and hands. Likely etiology of her recurrent cellulitis. - Not on immunosuppressive therapy at this time - Outpatient follow up (4) Hypertension: BP low-normal in the ED in the setting of sepsis; now normalized to 120/80. - Continue Toprol (5) Hypothyroidism: TSH was 0.4 in 08/2018 and in the fall as well. No signs/symptoms of hypo- /hyperthyroidism. - Continued home Synthroid 250 mcg (6) Asthma: No wheezing on exam; no concern for exacerbation. - Albuterol PRN (7) DVT prophylaxis: Lovenox Subjective Doing great today. Redness improving, though slower than prior days. No fevers/chills. Reports no fevers/chills, chest pain, shortness of breath, abdominal pain, nausea, or vomiting. Review of Systems Integumentary: + rash, + erythema and + skin swelling; no bleeding lesions and no skin ulcer Physical Exam Constitutional: WD/WN, vitals as above + acute distress and + morbidly obese Eyes: EOM intact bilaterally; no conjunctival abnormality ENMT: external ear and nose normal, oropharynx normal Neck: trachea midline, no thyromegaly normal visual inspection Respiratory: normal respiratory effort, lungs clear to auscultation no respiratory distress Cardiovascular: RRR, no murmur, no edema Gastrointestinal (Abdomen): Inspection/Auscultation: abdomen normal to inspection; abdomen not distended Musculoskeletal: no cyanosis or clubbing, extremities motor strength 5/5 Skin: + induration, + skin tightening and + nail pitting; no lesions, no ulcers, + abnormal skin elasticity and no fluctulance Neurologic: moves all extremities and awake Psychiatric: Orientation: alert, oriented to person and cooperative Results & Data Vital Signs (Past 12 Hours) Vital Signs Temp Pulse Resp BP Pulse Ox 10/28/18 14:59 37.4 C 78 18 118/68 97 10/28/18 11:45 37.0 C 70 18 122/78 98 10/28/18 07:49 37.0 C 76 18 128/72 96
[2018-10-29] MEDS: PIPERACILLIN/TAZOBACTAM 4.5 GM in DEXTROSE 5% 100 ML IV SCH ×3 (02:08→17:42)
[2018-10-29] MEDS: LEVOTHYROXINE SODIUM 125 MCG TABLET PO SCH (05:50)
[2018-10-29] MEDS: METOPROLOL SUCC 25MG EXT REL TAB PO SCH (09:26)
[2018-10-29] MEDS: ENOXAPARIN INJ 40 MG/0.4 ML SYR SQ SCH (09:26)
[2018-10-29] MEDS: CETIRIZINE HCL 10 MG TABLET PO SCH (09:26)
--- NOTE | 2018-10-29 15:58 | Hospitalist Progress Note ---
Date of Service October 29, 2018 Assessment & Plan (1) Cellulitis of leg, right: Recurrent with last hospitalization in 03/2018. - Was on daptomycin and Zosyn. Zosyn was used during last admission, and she was successfully treated with Augmentin as an outpatient. Prior cultures from 04/2018 grew MSSA. - CT RLE on 10/25 showed phlegmon vs. developing abscess - Orthopedic surgery consulted - No indication for surgery at this time - Daptomycin stopped on 10/27 to follow prior cultures. - Seen by ID on 10/28; plan for IV abx x 1-2 more days, then switch to cephalexin for likely somewhat prolonged course, then possible chronic suppression therapy. - Patient is somewhat reluctant to leave the hospital. Switch to cephalexin in the morning, then discharge in the afternoon if stable/improving. (2) Sepsis: SIRS 2/4 with tachycardia and fever with known source of infection. - Resolved with acetaminophen - Abx as above (3) Psoriasis: Long-standing issues with severe keratosis of the hands and feet. Recently diagnosed with psoriasis and undergoing PUVA therapy (UV light therapy) 2x/wk which has significantly improved the skin; however, she still has keratosis and cracking of the feet and hands. Likely etiology of her recurrent cellulitis. - Not on immunosuppressive therapy at this time - Outpatient follow up (4) Hypertension: BP low-normal in the ED in the setting of sepsis; now normalized to 120/80. - Continue Toprol (5) Hypothyroidism: TSH was 0.4 in 08/2018 and in the fall as well. No signs/symptoms of hypo- /hyperthyroidism. - Continued home Synthroid 250 mcg (6) Asthma: No wheezing on exam; no concern for exacerbation. - Albuterol PRN (7) DVT prophylaxis: Lovenox Subjective Doing well. Some blistering on the posterior calf where the last of the erythema is. Reports no fevers/chills, chest pain, shortness of breath, abdominal pain, nausea, or vomiting. Review of Systems Integumentary: + rash, + erythema and + skin swelling; no bleeding lesions and no skin ulcer Physical Exam Constitutional: WD/WN, vitals as above + acute distress and + morbidly obese Eyes: EOM intact bilaterally; no conjunctival abnormality ENMT: external ear and nose normal, oropharynx normal Neck: trachea midline, no thyromegaly normal visual inspection Respiratory: normal respiratory effort, lungs clear to auscultation no respiratory distress Cardiovascular: RRR, no murmur, no edema Gastrointestinal (Abdomen): Inspection/Auscultation: abdomen normal to inspection; abdomen not distended Musculoskeletal: no cyanosis or clubbing, extremities motor strength 5/5 Skin: + induration, + skin tightening and + nail pitting; no lesions, no ulcers, + abnormal skin elasticity and no fluctulance Neurologic: moves all extremities and awake Psychiatric: Orientation: alert, oriented to person and cooperative Results & Data Vital Signs (Past 12 Hours) Vital Signs Temp Pulse Resp BP BP Pulse Ox 10/29/18 15:02 36.9 C 82 16 116/81 95 10/29/18 07:22 36.6 C 63 16 106/64 96
[2018-10-30] MEDS: PIPERACILLIN/TAZOBACTAM 4.5 GM in DEXTROSE 5% 100 ML IV SCH (02:11)
[2018-10-30] MEDS: LEVOTHYROXINE SODIUM 125 MCG TABLET PO SCH (06:04)
[2018-10-30 06:24] LABS: Creatinine Clr Calc Pharmacy 112.5 ml/min; Est GFR (African American) 93.9
[2018-10-30] MEDS: CETIRIZINE HCL 10 MG TABLET PO SCH (08:04)
[2018-10-30] MEDS: METOPROLOL SUCC 25MG EXT REL TAB PO SCH (08:04)
[2018-10-30] MEDS: ENOXAPARIN INJ 40 MG/0.4 ML SYR SQ SCH (08:05)
[2018-10-30 09:01] LABS: BUN Creatinine Ratio 18.2 (10-20); Creatinine Clr Calc Pharmacy 117.9 ml/min; Est GFR (African American) 99.4; Est GFR (Non-African American) 85.8; Magnesium 2.4 mg/dl (1.8-2.4); Potassium 4.4 mmol/L (3.5-5.1)
[2018-10-30] MEDS: cephALEXin 500 MG CAP PO SCH ×3 (09:32→15:50)
--- NOTE | 2018-10-30 14:27 | Infectious Disease Progress Nt ---
Date of Service October 30, 2018 Assessment & Plan (1) Cellulitis of leg, right: Patient with cellulitis of the right leg with phlegmon formation, responding to IV antibiotics. I think she can transition to oral antibiotics with cephalexin 500 mg 4 times daily for another 10 days. Patient appears to be a good candidate for chronic suppressive therapy with oral antibiotics to prevent further recurrences of cellulitis. Recommend reducing cephalexin to 500 twice daily after completion of above therapy as chronic suppressive therapy. Would like to see patient back in the office in 2-3 weeks. (2) Phlegmon: Subjective Patient seen in follow-up for right lower extremity cellulitis. Continues to show improvement, erythema receding. Some drainage and blistering of the skin. Remains afebrile. No new culture results. No other new complaints. Review of Systems Review of Systems: All systems reviewed & are unremarkable except as noted in HPI & below Physical Exam Constitutional: WD/WN, vitals as above + morbidly obese and comfortable; no acute distress Eyes: PERRL, conjunctivae normal, anicteric sclerae ENMT: external ear and nose normal, oropharynx normal Neck: trachea midline, no thyromegaly neck nontender Respiratory: normal respiratory effort, lungs clear to auscultation normal percussion; does not use accessory muscles Cardiovascular: Rate/Rhythm: regular rate and regular rhythm Heart Sounds: normal S1 and normal S2; no gallop, no murmur and no cardiac rub Vessels: normal peripheral pulses; no JVD Gastrointestinal (Abdomen): normal bowel sounds, soft, nontender, no hepatosplenomegaly Musculoskeletal: no cyanosis or clubbing, extremities motor strength 5/5 Spine: thoracic spine normal to inspection and lumbar spine normal to inspection; no cervical spinal tenderness Skin: normal turgor and + erythema (Right calf area extending around anteriorly); no rashes Neurologic: patellar DTR's 2+ bilat, sensation intact no focal motor deficits Psychiatric: A+Ox3, euthymic affect Orientation: cooperative Lymphatic: no cervical or axillary lymphadenopathy no inguinal lymphadenopathy Results & Data Vital Signs (Past 12 Hours) Vital Signs Temp Pulse Pulse Resp BP BP Pulse Ox 10/30/18 08:06 61 139/76 10/30/18 07:14 36.5 C 56 L 20 97/63 L 98 Laboratory Results BMP 10/30/18 10/30/18 05:26 05:29 Sodium 140 Potassium 4.4 Chloride 107 Carbon Dioxide 26 BUN 15 Creatinine 0.87 0.83 Glucose 114 H Calcium 9.0 Diagnostic Findings Microbiology 10/25/18 14:23 Blood Blood Culture - Preliminary No growth to date. 10/25/18 14:23 Blood Blood Culture - Preliminary No growth to date.
--- NOTE | 2018-10-30 15:58 | Discharge Summary ---
Date of Service October 30, 2018 Admission HPI Per Admitting Provider 43-year-old female with a history of recurrent RLE cellulitis infections, psoriasis, hypertension who presents with recurrent RLE cellulitis. Patient notes that she felt fevers, chills, and fatigue on Tuesday night going into Tuesday morning. However she does not have any right lower extremity redness or erythema until Tuesday morning. The redness remained fairly stable on the posterior calf over the weekend, and she started on antibiotics from her PCP on Tuesday. She reports compliance with the antibiotics (Keflex and Bactrim) since that time; however, the erythema and redness have quickly spread even on the oral antibiotics. She reports some nausea, but no vomiting. She denies any shortness of breath, chest pain, abdominal pain, diarrhea, constipation, changes in strength or sensation. She has had long-standing skin problems, which were recently diagnosed as psoriasis. She is not on any immunotherapy, but does get PUVA UV light therapy 2X/week which she reports is significantly improving the psoriasis on her hands and feet. Admission Exam Per Admitting Provider Constitutional: WD/WN, vitals as above + acute distress and + morbidly obese Eyes: EOM intact bilaterally; no conjunctival abnormality ENMT: external ear and nose normal, oropharynx normal Neck: trachea midline, no thyromegaly normal visual inspection Respiratory: normal respiratory effort, lungs clear to auscultation no respiratory distress Cardiovascular: RRR, no murmur, no edema Gastrointestinal (Abdomen): Inspection/Auscultation: abdomen normal to inspection; abdomen not distended Musculoskeletal: no cyanosis or clubbing, extremities motor strength 5/5 Skin: + induration, + skin tightening and + nail pitting; no lesions, no ulcers, + abnormal skin elasticity and no fluctulance All in right lower extremity Neurologic: moves all extremities and awake Psychiatric: Orientation: alert, oriented to person and cooperative Principal Diagnosis Cellulitis of the right lower extremity Discharge Exam General: Obese female, in no acute distress. HEENT: NC/AT; PERRLA with EOMI; [place] conjunctiva, MMM. Neck: Supple and nontender Cardiac: RRR w/o murmurs, gallops or rubs Lungs: CTA bilaterally; No rhonchi, wheezing, or rales Abdomen: Bowel normoactive X 4; Nontender to palpationss Extremities: Warm. Chronic LE edema. Neuro: No focal weakness Skin: Area of erythema on right posterior calf, no discharge noted. Discharge Data Allergies Allergy/AdvReac Type Severity Reaction Status Date / Time clindamycin Allergy Intermediate Rash, Hives Verified 11/03/18 08:07 vancomycin Allergy Unknown ITCHING, Verified 11/03/18 08:07 RASH doxycycline Allergy Rash Verified 11/03/18 08:07 levofloxacin [From Levaquin] Allergy Rash Unverified 11/03/18 08:07 EQUATE MIGRAINE RELIEF Allergy Mild NUMB LIPS Uncoded 11/03/18 08:07 Consultations 10/25/18 16:13 ED Decision to Admit Stat 10/26/18 09:28 Consult Orthopedic Surgery Routine 10/27/18 16:25 Consult Infectious Diseases Routine Ordered Studies 10/25/18 13:46 CT lower leg RT w con Stat Hospital Course (1) Cellulitis of leg, right: Presented with RLE cellulitis. She was placed on Dapto/Zosyn IV at admission for empiric coverage. Previous wound culture for cellulitis in 2018 was positive [address] RLE on 10/25 showed phlegmon vs. developing abscess. Or tho consulted, did not recommend surgery. ID was consulted. Dapto IV was discontinued due to unlikelihood of MRSA. Zosyn was converted to PO Keflex on 10/30/18. Pt. will complete a 14 day course of total abx then start ppx Keflex BID. She will follow up with her PCP and ID as outpatient. Wound care consulted on day of discharge. (2) Sepsis: SIRS 2/4 with tachycardia and fever with known source of infection. Treatment as noted above. (3) Psoriasis: Long-standing issues with severe keratosis of the hands and feet. Recently diagnosed with psoriasis and undergoing PUVA therapy (UV light therapy) 2x/wk which has significantly improved the skin; however, she still has keratosis and cracking of the feet and hands. Likely etiology of her recurrent cellulitis. Will need to follow up as outpatient. (4) Hypertension: Continued Toprol as prescribed. (5) Hypothyroidism: TSH was 0.4 in 08/2018 and in the fall as well. Continued home Synthroid 250 mcg (6) Asthma: Albuterol prn. (7) DVT prophylaxis: Lovenox was ordered. Pt. was stable for discharge to home on 10/30/18. (8) Morbid obesity with BMI of 45.0-49.9, adult: Total Time Total Time Spent Total Time Spent (In Minutes): >30 minutes Total Time Includes: Examination of the Patient, Discharge Planning, Medication Reconciliation, Communication With Other Providers and Other Discharge Plan Discharge Items Patient Disposition: Home - Self-Care Reason For Visit: CELLULITIS Discharge Diagnosis: Right Lower Extremity Cellulitis Condition: Good Discharge Goals: Decrease discomfort, Improve disease control, Improve function, Increase independence, Improve nutritional status and Prevent disease Activity: As commented below Exercise/Sports: Gradually increase as tolerated Non-emergency contact: Primary Care Provider Call non-emergency contact if: you have any medication questions, your symptoms worsen, your pain is not controlled, your pain is worsening, your pain is unusual for you, your pain is concerning for you, you have a fever, your wound has increased redness, your wound has increased drainage and your wound pain has increased Follow-up/Referrals: Tulio Lemus MD [Physician] - 11/08/18 1:15 pm (Please, follow up with Dr. Lemus (Infectious Disease Specialist) on TuesdayNovember 08 at 1:15 pm. *The office is located in [address] of [facility]. This is the big building located next to this surgical specialty [facility]. If you need to change this appointment, call the office at [phone].) Denae Harper DO [Primary Care Provider] - 11/02/18 9:20 am (Please, follow up with Dr. Denae Harper on November 02 at 9:20 am. *If you need to change this appointment, call the office at [phone]. ) Diet: Regular Addtl Provider Instructions: 1. Right Lower Extremity Cellulitis * Please continue Keflex 500 mg four times daily to complete a 14 day course of antibiotics (end date: 11/08/2018) * Please reduced dose of Keflex to 500 mg twice daily starting on November 09, 2018. * Please continue topical wound care as instructed by wound care during this admission. * Please follow up with your primary care provider as scheduled on 11/02/2018. * An appointment will be scheduled with Dr. Lemus over the next 2-3 weeks. 2. Prescription for Keflex 500 mg tablets was sent to [facility] in [place], [place]. You can use the remainder of your medication from previous prescription for Keflex. Prescriptions: New cephalexin 500 mg Capsule 500 mg PO QID Qty: 40 RF: 0 Continued albuterol sulfate 0.63 mg/3 mL Solution For Nebulization 2 puff INHALATION DIRECTED PRN (Reason: Shortness Of Breath) RF: 0 cetirizine 10 mg tablet 10 mg PO QAM RF: 0 levothyroxine 50 mcg Tablet 50 mcg PO QAM RF: 0 levothyroxine 200 mcg Tablet 200 mcg PO QAM RF: 0 metoprolol succinate 25 mg tablet extended release 24 hr 25 mg PO QAM RF: 0 Vitamin D3 4,000 unit Capsule 4,000 unit PO QAM RF: 0 ibuprofen [Motrin IB] 200 mg Capsule 400 mg PO Q6H PRN (Reason: Pain) RF: 0 acetaminophen [Tylenol Extra Strength] 500 mg Tablet 500 mg PO Q6H PRN (Reason: Pain) RF: 0 Discontinued sulfamethoxazole-trimethoprim 800-160 mg tablet 160 mg PO BID RF: 0 cephalexin 500 mg capsule 500 mg PO TID RF: 0 Stand-Alone Forms: [facility], Work/School Release (Inpt) Discharge Orders: Discharge Order (Routine); Ordered 10/30/18 Ordered By: April Murray Admission Data Admit Date/Time: 10/25/18 17:40 Attending Provider: Kashif ePna Admit Provider: Elier Mcpherson Primary Care Provider: Denae Harper Other Providers: Tulio Lemus ; Erik Wilkinson Service: Medical Other Interventions: Discharge Summary Assessment (RN) Last Done: 10/30/18 15:41 Pending Studies at Discharge: Yes Studies:: Blood cultures 10/25: negative to date. DC Date/Time DO NOT enter until pt leaves facility: 10/30/18 16:30 Supervising Physician Co-Signing Physician Notes Attending Attestation & Discharge Note - Pt seen/examined, chart reviewed, discharge care plan d/w BRENT Murray. I agree w/ the smith components of her discharge summary. 43yo female who was treated for RLE cellulitis while hospitalized. Received broad-spectrum IV abx therapy and was transitioned to oral keflex at d/c. Imaging revealed evidence of possible phlegmon of the RLE but no discrete abscess. Cellulitis markedly improved while here. Following QID dosing of keflex to complete her treatment course she will then go to BID dosing thereafter for prophylaxis. I recommended consideration of compression stockings in the future as she likely has an element of venous insufficiency/lymphedema contributing to her heightened risk of cellulitis. Discharge exam: gen - NAD, obese heart - RRR, s1, s2 lungs - CTA b/l abd - soft ext - 1+ edema right leg; multiple demarkation lines on RLE; area of erythema with "bubbly" texture of skin on right calf area; no areas of crepitus; background of psoriatic lesions on both legs Kashif Pena MD
== END 2018-10-30 16:30 | disposition home or self-care (01) | DRG 872 ==
LOC: ED 12:36 → 4E 17:40 → SUATTDRO 17:40 → 4E 18:42
DX: Z79.899 Other long term (current) drug therapy; A41.9 Sepsis, unspecified organism; L57.0 Actinic keratosis; L03.115 Cellulitis of right lower limb; J45.909 Unspecified asthma, uncomplicated; L40.9 Psoriasis, unspecified; I10 Essential (primary) hypertension; E03.9 Hypothyroidism, unspecified

== ENCOUNTER 2021-07-28 09:26 | Observation (INO) ==
--- NOTE | 2021-07-28 09:54 | Emergency Department Note ---
Impression & Plan Brain TIA, Facial droop, Trouble swallowing ED Provider Note NAME: ADRI HARRY AGE: 46 SEX: F : 1975 ARRIVES VIA: Walk-In INFORMANT: Patient ED PROVIDER(S): Royer Rivera DO CHIEF COMPLAINT: Right-sided facial droop and numbness HPI: Patient is a 46-year-old female who presents to the ER with past medical history of morbid obesity, cervical radiculopathy, thoracic and lumbar radiculopathy, Chiari malformation, hypertension, hypothyroidism and asthma that presents to the ER following sneezing just prior to arrival. Following this she noticed numbness on the right side of her face by the angle of her mouth. She felt like it was slightly drooping. She also noticed some trouble swallowing on the right side. For the past 3 to 4 weeks she has been having paresthesias of her bilateral hands. Started with 5 and fourth digits bilaterally and now has included the third and second. It travels up the arms now as it has progressed. She is following with a neurosurgeon in [place]. She is scheduled to have MRIs but has not had them done yet. She follows locally with Zach Goel from neurology. Denies any chest pain or shortness of breath. No nausea vomiting or diarrhea. She notes the paresthesias have resolved on her face but she still has trouble swallowing. She has been having trouble with hot and cold of the upper extremities as she has had decreased sensation as well over the past 4 weeks. ROS: See above HPI for pertinent positives & negatives. A total of 10 systems reviewed and were otherwise negative. PAST MEDICAL HISTORY:See Below PAST SURGICAL HISTORY:See Below FAMILY HISTORY:See Below SOCIAL HISTORY:See Below HOME MEDICATIONS:See Below ALLERGIES:See Below VITALS:See Below PHYSICAL EXAMINATION: GENERAL: Sitting up in bed, alert, well appearing, well nourished, no distress, non-toxic EYE EXAM: normal conjunctiva. PERRL and EOM's intact. OROPHARYNX: no exudate, no erythema, lips, buccal mucosa, and tongue normal and mucous membranes are moist NECK: supple, no nuchal rigidity, no adenopathy, non-tender LUNGS: Clear to auscultation. Normal chest wall mechanics HEART: no murmurs, S1 normal and S2 normal ABDOMEN: abdomen soft, non-tender, normo-active bowel sounds, no masses, no rebound or guarding. UPPER EXTREMITIES: upper extremities are grossly normal. LOWER EXTREMITIES: No pitting edema. NEURO EXAM: Normal sensorium, cranial nerves II-XII intact, normal speech, no weakness of arms, no weakness of legs. No drift. Finger to nose intact. Gross sensation intact. MEDICAL DECISION MAKING: Patient is a 46-year-old female who presents ER for the both stated complaint. IV was established but ovaries obtained. Stroke alert was not called as there is no obvious deficits on exam. Labs show no significant leukocytosis or anemia. INR unremarkable. BMP with LFTs bilirubin was unremarkable as well. Troponin and lipase were normal. UA was clean. COVID was negative. CT as well as angios of the head and neck were negative. CT of the cervical spine was negative. Discussed with Dr. Dwyer and he recommends a full work-up including MRIs and admission. Patient was updated at bedside. Her symptoms have been gradually abating. The paresthesias are resolved. Her only thing left is just some trouble swallowing on the right. Discussed with Dr. Mckay for further evaluation. Triage Nursing notes reviewed. Limited review of prior medical records performed Vital Signs: reviewed and remarkable for no significant abnormalities Differential diagnosis: Differential Diagnosis includes but is not limited to ischemic Stroke, hemorrhagic stroke, bells palsy, mass, neoplasm, migraine headache, seizure, subarachnoid hemorrhage, TIA, and transient global amnesia. ER treatment provided: See below Diagnostics interpreted by me: ECG: Sinus rhythm rate 83 Normal axis No PVCs QTC 432 Cardiac Monitoring: An order was placed for continuous cardiac monitoring. The monitor shows a rate of 70 with sinus rhythm. Laboratory studies: As stated above and show below. Imaging studies: CT angios of the head and neck as well as noncontrast cervical spine were negative Consultation(s): Discussed with Dr. Dwyer from neurology Discussed with Dr. Butt from the hospital service Procedures: none Critical Care: None Past Med/Surg History Medical History Acquired equinovarus deformity Allergic rhinitis Arthritis Asthma Chiari malformation type I Erosive (osteo)arthritis Hypertension Hypothyroidism Kidney stones, calcium oxalate Morbidly obese Osteoarthritis Palmoplantar keratoderma Physical deconditioning Prediabetes Pustular psoriasis palms, sole Recurrent cellulitis of lower extremity Severe obstructive sleep apnea Shortness of breath on exertion Symptomatic PVCs Venous insufficiency (chronic) (peripheral) Surgical History History of incision and drainage (11/2015) S/P section (2009) S/P dilation and curettage Family History Mother Psoriasis Asthma Depression Gallbladder disease Lymphoma Menieres disease Father Asthma Diabetes Hypertension Kidney stones Lymphoma Menieres disease Sister Kidney stones Aunt Breast cancer Grandfather Myocardial infarction Other Colorectal cancer Denies family history of Ovarian cancer Prostate cancer Lung cancer Social History Smoking Status: Never smoker Second Hand Exposure: No; Hx Alcohol Use: No Hx Substance Use: No Preferred Language: Slovak Communication Ability: Effective Visual Impairment: Limited Hearing Ability: Normal Doorkeeper Required: No Beliefs That Will Affect Care: None marital status: Current Living Situation: Spouse Current Living Situation Comment: lives at home with spouse, child and pets current occupational status: employed current occupation: [employer] How many Children do You have: 1 Feels Safe at Home: Yes Childhood Exposure to Second-Hand Smoke: Yes caffeine: Yes (coffee- soda) during the past year weight has: increased > 10 lbs Dental Care, Regularly: Yes Physical Activity Frequency: Does not Exercise Physical Activity Frequency Comment: limited by physical condition Seatbelt Use: always Sunscreen Use: Yes Assistive Devices: CPAP and Glasses Allergies Allergies Allergy/AdvReac Type Severity Reaction Status Date / Time clindamycin Allergy Intermediate Rash, Hives Verified 07/28/21 11:42 sulfamethoxazole Allergy Intermediate Rash Verified 07/28/21 11:42 [From Bactrim] trimethoprim [From Bactrim] Allergy Intermediate Rash Verified 07/28/21 11:42 vancomycin Allergy Unknown ITCHING, Verified 07/28/21 11:42 RASH doxycycline Allergy Rash Verified 07/28/21 11:42 levofloxacin [From Levaquin] Allergy Rash Verified 07/28/21 11:42 EQUATE MIGRAINE RELIEF Allergy Mild NUMB LIPS Uncoded 07/28/21 11:42 Ciprofloxacin HCl TABS Allergy Rash Uncoded 07/28/21 11:42 EQ Migraine Relief TABS Allergy . Uncoded 07/28/21 11:42 Home Meds Home Medications Medication Instructions Recorded Confirmed cetirizine 10 mg tablet 10 mg PO QAM 05/09/18 07/28/21 acetaminophen 500 mg tablet 1,000 mg PO Q6H PRN 03/04/19 07/28/21 (Tylenol Extra Strength) betamethasone dipropionate 0.05 % 1 appln TOPICAL BID PRN #1 gm 03/04/19 07/28/21 topical cream cholecalciferol (vitamin D3) 50 4,000 units PO QAM cap 03/04/19 07/28/21 mcg (2,000 unit) capsule levonorgestrel 20 mcg/24 hours (7 1 device IU UD 09/12/19 07/28/21 yrs) 52 mg intrauterine device (Mirena) aspirin 81 mg tablet,delayed 81 mg PO QAM 10/17/20 07/28/21 release (Adult Aspirin Regimen) hydrochlorothiazide 25 mg tablet 12.5 mg PO DAILY PRN tab 04/06/21 07/28/21 levothyroxine 200 mcg tablet 200 mcg PO DAILYBB 07/28/21 07/28/21 levothyroxine 50 mcg tablet 50 mcg PO DAILYBB 07/28/21 07/28/21 Previous Rx's Medication Instructions Recorded albuterol sulfate 90 mcg/actuation 2 puff INHALATION Q6H PRN #18 gm 09/29/20 aerosol inhaler clobetasol 0.05 % topical cream 1 applic TOPICAL BID PRN #45 g 04/06/21 metoprolol succinate 25 mg 37.5 mg PO QAM #90 tab 05/28/21 tablet,extended release 24 hr Results & Data (ED) Vital Signs Vital Signs - 24 hr 07/28/21 09:33 07/28/21 10:15 07/28/21 10:21 Temperature 37.3 C Temperature Source Temporal Artery Scan Pulse Rate 74 72 Pulse Rate [Right Radial] 75 Respiratory Rate 20 18 17 Respiratory Effort / Characteristics Non-Labored Respiratory Depth Normal Blood Pressure 155/109 H Blood Pressure [Right Arm] 150/105 H Blood Pressure Mean 124 Blood Pressure Mean [Right Arm] 120 Pulse Oximetry 98 98 Oxygen Delivery Method Room Air Room Air Sepsis Recent Fever Within 48 Hours No Sepsis New/Unexplained Change in Mental Status N/A Sepsis Action Taken by Nursing No Action Required 07/28/21 10:30 07/28/21 10:54 07/28/21 11:03 Temperature Temperature Source Pulse Rate 70 73 Pulse Rate [Right Radial] Respiratory Rate 24 16 Respiratory Effort / Characteristics Respiratory Depth Blood Pressure Blood Pressure [Right Arm] Blood Pressure Mean Blood Pressure Mean [Right Arm] Pulse Oximetry 98 Oxygen Delivery Method Room Air Sepsis Recent Fever Within 48 Hours Sepsis New/Unexplained Change in Mental Status Sepsis Action Taken by Nursing 07/28/21 11:30 07/28/21 12:00 07/28/21 12:30 Temperature Temperature Source Pulse Rate 66 70 67 Pulse Rate [Right Radial] Respiratory Rate 15 15 17 Respiratory Effort / Characteristics Respiratory Depth Blood Pressure Blood Pressure [Right Arm] Blood Pressure Mean Blood Pressure Mean [Right Arm] Pulse Oximetry Oxygen Delivery Method Sepsis Recent Fever Within 48 Hours Sepsis New/Unexplained Change in Mental Status Sepsis Action Taken by Nursing 07/28/21 13:00 Temperature Temperature Source Pulse Rate 65 Pulse Rate [Right Radial] Respiratory Rate 16 Respiratory Effort / Characteristics Respiratory Depth Blood Pressure 129/99 Blood Pressure [Right Arm] Blood Pressure Mean 109 Blood Pressure Mean [Right Arm] Pulse Oximetry Oxygen Delivery Method Sepsis Recent Fever Within 48 Hours Sepsis New/Unexplained Change in Mental Status Sepsis Action Taken by Nursing Laboratory Data Result diagrams: 07/28/21 10:35 07/28/21 11:35 Lab Results 07/28/21 07/28/21 07/28/21 Range/Units 09:45 10:00 10:35 WBC 6.15 (4.8-10.8) K/uL RBC 4.74 (4.2-5.4) M/uL Hgb 14.5 (12.0-16.0) g/dL Hct 42.5 (37-47) % MCV 89.7 (80-100) fL MCH 30.6 (25-34) pg MCHC 34.1 (32-36) g/dL RDW Std Deviation 41.1 (36.4-46.3) fL RDW Coeff of Jesu 12.5 (11.5-14.5) % Plt Count 225 (130-400) K/uL MPV 9.3 (7.4-10.4) fL Immature Gran % (Auto) 0.2 % Neut % (Auto) 58.5 % Lymph % (Auto) 31.2 % Woods % (Auto) 6.2 % Eos % (Auto) 3.6 % Baso % (Auto) 0.3 % Neut # (Auto) 3.60 (1.4-6.5) K/uL Lymph # (Auto) 1.92 (1.2-3.4) K/uL Woods # (Auto) 0.38 (0.11-0.59) K/uL Eos # (Auto) 0.22 (0-0.5) K/uL Baso # (Auto) 0.02 (0-0.2) K/uL Immature Gran # (Auto) 0.01 (0.00-0.02) K/uL PT (9.0-12.0) Seconds INR (0.9-1.1) Sodium (136-145) mmol/L Potassium (3.5-5.1) mmol/L Chloride (98-107) mmol/L Carbon Dioxide (21-32) mmol/L Anion Gap (3-11) BUN (6-23) mg/dl Creatinine (0.6-1.2) mg/dl Est Cr Clr Drug Dosing ml/min Est GFR ( Amer) ml/min Est GFR (Non-Af Amer) ml/min BUN/Creatinine Ratio (10-20) Glucose (70-99(Fasting)) mg/dl POC Glucose 110 H (70-99) mg/dl Calcium (8.5-10.1) mg/dl Total Bilirubin (0.2-1.0) mg/dl AST (13-39) U/L ALT (7-52) U/L Alkaline Phosphatase (34-104) U/L Troponin I (0-0.04) ng/ml Total Protein (6.0-8.3) gm/dl Albumin (3.4-5.0) gm/dl Globulin (2.5-4.0) gm/dl Albumin/Globulin Ratio (0.9-2) Lipase (11-82) U/L Urine Color Yellow Urine Appearance Clear (Clear) Urine pH 6.0 (4.5-7.5) Ur Specific [place] 1.012 (1.000-1.030) Urine Protein Negative (Negative) Urine Glucose (UA) Negative (Negative) Urine Ketones Negative (Negative) Urine Blood Negative (Negative) Urine Nitrite Negative (Negative) Urine Bilirubin Negative (Negative) Urine Urobilinogen Negative (Negative) Ur Leukocyte Esterase Negative (Negative) SARS-CoV-2, RNA, NAAT (NEGATIVE) 07/28/21 07/28/21 07/28/21 Range/Units 10:35 10:35 11:29 WBC (4.8-10.8) K/uL RBC (4.2-5.4) M/uL Hgb (12.0-16.0) g/dL Hct (37-47) % MCV (80-100) fL MCH (25-34) pg MCHC (32-36) g/dL RDW Std Deviation (36.4-46.3) fL RDW Coeff of Jesu (11.5-14.5) % Plt Count (130-400) K/uL MPV (7.4-10.4) fL Immature Gran % (Auto) % Neut % (Auto) % Lymph % (Auto) % Woods % (Auto) % Eos % (Auto) % Baso % (Auto) % Neut # (Auto) (1.4-6.5) K/uL Lymph # (Auto) (1.2-3.4) K/uL Woods # (Auto) (0.11-0.59) K/uL Eos # (Auto) (0-0.5) K/uL Baso # (Auto) (0-0.2) K/uL Immature Gran # (Auto) (0.00-0.02) K/uL PT 11.0 (9.0-12.0) Seconds INR 1.1 (0.9-1.1) Sodium 137 (136-145) mmol/L Potassium (3.5-5.1) mmol/L Chloride 105 (98-107) mmol/L Carbon Dioxide 26 (21-32) mmol/L Anion Gap 6 (3-11) BUN 17 (6-23) mg/dl Creatinine 0.69 (0.6-1.2) mg/dl Est Cr Clr Drug Dosing 144.6 ml/min Est GFR ( Amer) 120.1 ml/min Est GFR (Non-Af Amer) 103.7 ml/min BUN/Creatinine Ratio 24.6 H (10-20) Glucose 101 H (70-99(Fasting)) mg/dl POC Glucose (70-99) mg/dl Calcium 9.3 (8.5-10.1) mg/dl Total Bilirubin 0.5 (0.2-1.0) mg/dl AST (13-39) U/L ALT 18 (7-52) U/L Alkaline Phosphatase (34-104) U/L Troponin I < 0.03 (0-0.04) ng/ml Total Protein 7.4 (6.0-8.3) gm/dl Albumin 4.3 (3.4-5.0) gm/dl Globulin 3.1 (2.5-4.0) gm/dl Albumin/Globulin Ratio 1.4 (0.9-2) Lipase 23 (11-82) U/L Urine Color Urine Appearance (Clear) Urine pH (4.5-7.5) Ur Specific [place] (1.000-1.030) Urine Protein (Negative) Urine Glucose (UA) (Negative) Urine Ketones (Negative) Urine Blood (Negative) Urine Nitrite (Negative) Urine Bilirubin (Negative) Urine Urobilinogen (Negative) Ur Leukocyte Esterase (Negative) SARS-CoV-2, RNA, NAAT NEGATIVE (NEGATIVE) 07/28/21 Range/Units 11:35 WBC (4.8-10.8) K/uL RBC (4.2-5.4) M/uL Hgb (12.0-16.0) g/dL Hct (37-47) % MCV (80-100) fL MCH (25-34) pg MCHC (32-36) g/dL RDW Std Deviation (36.4-46.3) fL RDW Coeff of Jesu (11.5-14.5) % Plt Count (130-400) K/uL MPV (7.4-10.4) fL Immature Gran % (Auto) % Neut % (Auto) % Lymph % (Auto) % Woods % (Auto) % Eos % (Auto) % Baso % (Auto) % Neut # (Auto) (1.4-6.5) K/uL Lymph # (Auto) (1.2-3.4) K/uL Woods # (Auto) (0.11-0.59) K/uL Eos # (Auto) (0-0.5) K/uL Baso # (Auto) (0-0.2) K/uL Immature Gran # (Auto) (0.00-0.02) K/uL PT (9.0-12.0) Seconds INR (0.9-1.1) Sodium (136-145) mmol/L Potassium 4.3 (3.5-5.1) mmol/L Chloride (98-107) mmol/L Carbon Dioxide (21-32) mmol/L Anion Gap (3-11) BUN (6-23) mg/dl Creatinine (0.6-1.2) mg/dl Est Cr Clr Drug Dosing ml/min Est GFR ( Amer) ml/min Est GFR (Non-Af Amer) ml/min BUN/Creatinine Ratio (10-20) Glucose (70-99(Fasting)) mg/dl POC Glucose (70-99) mg/dl Calcium (8.5-10.1) mg/dl Total Bilirubin (0.2-1.0) mg/dl AST 14 (13-39) U/L ALT (7-52) U/L Alkaline Phosphatase (34-104) U/L Troponin I (0-0.04) ng/ml Total Protein (6.0-8.3) gm/dl Albumin (3.4-5.0) gm/dl Globulin (2.5-4.0) gm/dl Albumin/Globulin Ratio (0.9-2) Lipase (11-82) U/L Urine Color Urine Appearance (Clear) Urine pH (4.5-7.5) Ur Specific [place] (1.000-1.030) Urine Protein (Negative) Urine Glucose (UA) (Negative) Urine Ketones (Negative) Urine Blood (Negative) Urine Nitrite (Negative) Urine Bilirubin (Negative) Urine Urobilinogen (Negative) Ur Leukocyte Esterase (Negative) SARS-CoV-2, RNA, NAAT (NEGATIVE) Administered Medications Discontinued Medications Ioversol (Optiray 320 125ml) 118 ml IV ONCE ONE Stop: 07/28/21 11:04 Last Admin: 07/28/21 11:03 Dose: 118 ml Documented by: [id number] Imaging Data Radiologist's Impression: Cervical Spine CT 07/28/21 09:49 CT cervical spine wo con CLINICAL HISTORY: b/l arm paraesthesia TECHNIQUE: Multidetector row helical CT of the cervical spine was performed wi thout administration of intravenous contrast. Coronal and sagittal reformations were obtained. Automated dose lowering techniques and/or adjustment according to patient size were utilized for this exam. Comparison: CTA neck performed same day. FINDINGS: No acute fractures or subluxations are identified. The vertebral body heights and disk spaces are well maintained. There is straightening of the cervical spine. Soft tissues are unremarkable. IMPRESSION: No evidence of acute bony injury. ACT 112: Negative or not required by law. Electronically signed by: Biju Jacobson M.D. 07/28/2021 11:18 AM Head CTA 07/28/21 09:49 CT angio head wo/w CLINICAL HISTORY: r facial droop . Bilateral arm paresthesias COMPARISON STUDY: No previous studies for comparison. CT DOSE: 2024.13 mGy.cm TECHNIQUE: CT Angio of the brain was performed.followed by image post processing with coronal, and sagittal MIP reformats. Contrast Volume: Optiray 320, 118 ml FINDINGS: Vascular findings: There is normal enhancement within the internal carotid arteries bilaterally. There is normal enhancement noted within the anterior, middle and posterior cerebral arteries. Nonvascular findings: On noncontrast images, there is homogeneous attenuation of the brain parenchyma bilaterally. There is no evidence for an acute infarct or cerebral edema. On postcontrast images, no abnormal enhancement is demonstrated. Impression IMPRESSION: Negative CT angiogram of the brain with contrast. ACT 112: Negative or not required by law. Electronically signed by: Juan C Austin M.D. 07/28/2021 11:15 AM Neck CTA 07/28/21 09:49 CT ANGIOGRAPHY OF THE NECK WITH CONTRAST CLINICAL HISTORY: Bilateral arm numbness. Right facial droop. COMPARISON STUDY: CTA of the neck August 18, 2017. Technique: CT angiography of the carotid and vertebral arteries was obtained using Optiray and 3D reconstruction on an independent workstation. NASCET criteria was utilized. Automated exposure control was utilized for the study. A dose lowering technique was utilized adhering to the principles of ALARA. Findings: Visualized portions of the lung apices are unremarkable. Is no acute cervical spine fracture. There is no cervical lymphadenopathy. The bilateral common carotid, cervical internal carotid and vertebral arteries are patent. There is no dissection or stenosis within these vessels. There is tortuosity of the cervical portion of the right internal carotid artery. Head CT/CTA of the head will be reported separately. IMPRESSION: No stenosis or dissection within the bilateral common carotid, cervical internal carotid or vertebral arteries. ACT 112: Negative or not required by law. Electronically signed by: Rai Pierre M.D. 07/28/2021 12:10 PM Chest X-Ray 07/28/21 11:03 XR chest 1V portable CLINICAL HISTORY: r sided facial droop. Evaluate cardiopulmonary status COMPARISON STUDY: 09/18/2020 TECHNIQUE: 1 view of the chest FINDINGS: Single frontal view of the chest demonstrates the cardiomediastinal silhouette to be within normal limits. The lungs are clear of alveolar opacities. There is no evidence for pleural effusion. There is no evidence for vascular congestion. There is no acute osseous pathology. IMPRESSION: No acute cardiopulmonary disease. ACT 112: Negative or not required by law. Electronically signed by: Juan C Austin M.D. 07/28/2021 12:00 PM Discharge Plan Visit Data Chief Complaint: TIA Symptoms Stated Complaint: DROOP R SIDE MOUTH, HANDS NUMB ED Provider: Royer Rivera Discharge Problem: Brain TIA, Facial droop, Trouble swallowing Forms Stand Alone Forms: [facility] Prescriptions Prescriptions: No Action metoprolol succinate 25 mg tablet extended release 24 hr 37.5 mg PO QAM Qty: 90 RF: 1 cholecalciferol (vitamin D3) 2,000 unit capsule 4,000 units PO QAM RF: 0 betamethasone dipropionate 0.05 % cream 1 appln topical BID PRN (Reason: Skin Irritation) Qty: 1 RF: 0 Mirena 20 mcg/24 hours (5 yrs) 52 mg intrauterine device 1 device IU UD RF: 0 albuterol sulfate 90 mcg/actuation HFA aerosol inhaler 2 puff inhalation Q6H PRN (Reason: shortness of breath) Qty: 18 RF: 2 aspirin [Adult Aspirin Regimen] 81 mg tablet,delayed release (DR/EC) 81 mg PO QAM RF: 0 hydrochlorothiazide 25 mg tablet 12.5 mg PO DAILY PRN (Reason: Edema) RF: 0 clobetasol 0.05 % cream 1 applic topical BID PRN (Reason: psoriasis) Qty: 45 RF: 1 cetirizine 10 mg tablet 10 mg PO QAM RF: 0 acetaminophen [Tylenol Extra Strength] 500 mg tablet 1,000 mg PO Q6H PRN (Reason: Fever Or Pain) RF: 0 levothyroxine 50 mcg tablet 50 mcg PO DAILYBB RF: 0 levothyroxine 200 mcg tablet 200 mcg PO DAILYBB RF: 0 Referrals Referrals: Denae Harper DO [Primary Care Provider] - Discharge Problem: Trouble swallowing Qualifiers: Dysphagia type: unspecified Qualified Code(s): R13.10 - Dysphagia, unspecified
[2021-07-28 10:44] LABS: Appearance Urine Clear (Clear); Bilirubin Urine Negative (Negative); Blood Urine Negative (Negative); Color Urine Yellow; Glucose Urine UA Negative (Negative); Ketones Urine Negative (Negative); Leukocyte Esterase Urine Negative (Negative); Nitrite Urine Negative (Negative); Protein Urine Negative (Negative); Specific Gravity Urine 1.012 (1.000-1.030); Urobilinogen Urine Negative (Negative)
[2021-07-28 10:54] LABS: Basophils # (auto) 0.02 K/uL (0-0.2); Basophils % (auto) 0.3 %; Eosinophils # (auto) 0.22 K/uL (0-0.5); Eosinophils % (auto) 3.6 %; Hematocrit (blood only) 42.5 % (37-47); Hemoglobin 14.5 g/dL (12.0-16.0); Immature Granulocytes # (auto) 0.01 K/uL (0.00-0.02); Immature Granulocytes % (auto) 0.2 %; Lymphocytes # (auto) 1.92 K/uL (1.2-3.4); Lymphocytes % (auto) 31.2 %; Mean Corpuscular Hemoglobin 30.6 pg (25-34); Mean Corpuscular Hgb Conc 34.1 g/dL (32-36); Mean Corpuscular Volume 89.7 fL (80-100); Mean Platelet Volume 9.3 fL (7.4-10.4); Monocytes # (auto) 0.38 K/uL (0.11-0.59); Monocytes % (auto) 6.2 %; Neutrophils % (auto) 58.5 %; Platelet Count 225 K/uL (130-400); RDW Coefficient of Variation 12.5 % (11.5-14.5); RDW Standard Deviation 41.1 fL (36.4-46.3); Red Blood Count 4.74 M/uL (4.2-5.4); White Blood Count 6.15 K/uL (4.8-10.8)
[2021-07-28] MEDS ORDERED: OPTIRAY 320 125ml IV ONE (11:03)
[2021-07-28 11:08] LABS: INR 1.1 (0.9-1.1)
--- NOTE | 2021-07-28 11:16 | CT Scan Report ---
CT angio head wo/w CLINICAL HISTORY: r facial droop . Bilateral arm paresthesias COMPARISON STUDY: No previous studies for comparison. CT DOSE: 5.13 mGy.cm TECHNIQUE: CT Angio of the brain was performed.followed by image post processing with coronal, and s agittal MIP reformats. Contrast Volume: Optiray 320, 118 ml FINDINGS: Vascular findings: There is normal enhancement within the internal carotid arteries bilaterally. The re is normal enhancement noted within the anterior, middle and posterior cerebral arteries. Nonvascular findings: On noncontrast images, there is homogeneous attenuation of the brain parenchyma bilaterally. There is no evidence for an acute infarct or cerebral edema. On postcontrast images, no abnormal enhancement is demonstrated. Impression IMPRESSION: Negative CT angiogram of the brain with contrast. ACT 112: Negative or not required by law. Electronically signed by: Juan C Austin M.D. 07/28/2021 11:15 AM
[2021-07-28 11:17] LABS: Troponin I < 0.03 ng/ml (0-0.04)
--- NOTE | 2021-07-28 11:20 | CT Scan Report ---
CT cervical spine wo con CLINICAL HISTORY: b/l arm paraesthesia TECHNIQUE: Multidetector row helical CT of the cervical spine was performed without administration of intravenous contrast. Coronal and sagittal reformations were obtained. Automated dose lowering techn iques and/or adjustment according to patient size were utilized for this exam. Comparison: CTA neck performed same day. FINDINGS: No acute fractures or subluxations are identified. The vertebral body heights and disk spaces are wel l maintained. There is straightening of the cervical spine. Soft tissues are unremarkable. IMPRESSION: No evidence of acute bony injury. ACT 112: Negative or not required by law. Electronically signed by: Biju Jacobson M.D. 07/28/2021 11:18 AM
[2021-07-28 11:22] LABS: Alanine Aminotransferase 18 U/L (7-52); Albumin Globulin Ratio 1.4 (0.9-2); Albumin Level 4.3 gm/dl (3.4-5.0); Anion Gap 6 (3-11); BUN Creatinine Ratio 24.6 (10-20); Bilirubin,Total 0.5 mg/dl (0.2-1.0); Blood Urea Nitrogen 17 mg/dl (6-23); Calcium 9.3 mg/dl (8.5-10.1); Carbon Dioxide 26 mmol/L (21-32); Chloride 105 mmol/L (98-107); Creatinine Clr Calc Pharmacy 144.6 ml/min; Est GFR (African American) 120.1 ml/min; Est GFR (Non-African American) 103.7 ml/min; Globulin 3.1 gm/dl (2.5-4.0); Glucose 101 mg/dl (70-99(Fasting)); Lipase 23 U/L (11-82); Sodium 137 mmol/L (136-145); Total Protein 7.4 gm/dl (6.0-8.3)
--- NOTE | 2021-07-28 12:02 | XRay Report ---
XR chest 1V portable CLINICAL HISTORY: r sided facial droop. Evaluate cardiopulmonary status COMPARISON STUDY: 09/18/2020 TECHNIQUE: 1 view of the chest FINDINGS: Single frontal view of the chest demonstrates the cardiomediastinal silhouette to be within normal li mits. The lungs are clear of alveolar opacities. There is no evidence for pleural effusion. There is no evidence for vascular congestion. There is no acute osseous pathology. IMPRESSION: No acute cardiopulmonary disease. ACT 112: Negative or not required by law. Electronically signed by: Juan C Austin M.D. 07/28/2021 12:00 PM
--- NOTE | 2021-07-28 12:12 | CT Scan Report ---
CT ANGIOGRAPHY OF THE NECK WITH CONTRAST CLINICAL HISTORY: Bilateral arm numbness. Right facial droop. COMPARISON STUDY: CTA of the neck August 18, 2017. Technique: CT angiography of the carotid and vertebral arteries was obtained using Optiray and 3D rec onstruction on an independent workstation. NASCET criteria was utilized. Automated exposure control was utilized for the study. A dose lowering technique was utilized adhering to the principles of ALA RA. Findings: Visualized portions of the lung apices are unremarkable. Is no acute cervical spine fractur e. There is no cervical lymphadenopathy. The bilateral common carotid, cervical internal carotid and vertebral arteries are patent. There is no dissection or stenosis within these vessels. There is tort uosity of the cervical portion of the right internal carotid artery. Head CT/CTA of the head will be reported separately. IMPRESSION: No stenosis or dissection within the bilateral common carotid, cervical internal carotid or vertebral arteries. ACT 112: Negative or not required by law. Electronically signed by: Rai Pierre M.D. 07/28/2021 12:10 PM
[2021-07-28 12:32] LABS: Potassium 4.3 mmol/L (3.5-5.1)
--- NOTE | 2021-07-28 15:23 | History & Physical Report ---
Date of Service July 28, 2021 Assessment & Plan (1) Facial droop: Plan: Concern regarding possible CVA as per neurology. Will place in monitored observation Continue neurochecks every 4 hours Check an MRI of the brain. Patient states that there was investigation into syrinx, will add this to order. Reviewed CT/CT angiogram performed in the ER, no significant findings at that time We will asked neurology to evaluate for further recommendations (2) Thoracic radiculopathy: Plan: We will add MRI of the cervical and thoracic spines as well Ask neurology to evaluate as noted (3) Chiari malformation type I: Plan: This is apparently a known finding. Patient is under the care [place]sur[place]. If there is concern that this is the causative reason for her symptomatology, may need to consider transfer versus outpatient follow-up History of Present Illness Chief Complaint: facial droop Primary Care Provider: Denae Harper, This is a 46-year-old female with past medical history of Chiari malformation that presents today with right lower facial droop. Patient is a decent historian. Patient has a longstanding issue with Chiari malformation along with C/T radiculopathy. She follows with Dr. Goel locally as well as with a neurologist in [place]. She tells me that she has been having worsening radiculopathy in the bilateral upper extremities. This is in the inferior aspects of both arms and radiates down to her digits. The fifth digit is numb and she feels that the fourth digit on both sides is becoming more numb as well. She does not note any weakness in her hands or arms. An MRI to rule out syrinx was recommended but she has not yet had these performed. Earlier today, patient was at work. She sneezed hard and noticed soon after gail t she had a little right lower facial droop. There is also a small amount of paresthesia at the right lip/cheek. There was a minimal amount of dysarthria with this per the patient although I did not detect any during my interview. Patient tells me that this is since resolved but still feels she has a facial droop. Patient also noted some "swallowing difficulties ". She says it just "did not feel" but denied any or choking or dysphagia. Case was discussed between the ER physician and Dr. Dwyer who is on-call for neurology. Recommendation is for the patient to be placed in a monitored obser vation for MRI and further work-up to consider CVA. Allergies Allergy/AdvReac Type Severity Reaction Status Date / Time clindamycin Allergy Intermediate Rash, Hives Verified 07/28/21 11:42 sulfamethoxazole Allergy Intermediate Rash Verified 07/28/21 11:42 [From Bactrim] trimethoprim [From Bactrim] Allergy Intermediate Rash Verified 07/28/21 11:42 vancomycin Allergy Unknown ITCHING, Verified 07/28/21 11:42 RASH doxycycline Allergy Rash Verified 07/28/21 11:42 levofloxacin [From Levaquin] Allergy Rash Verified 07/28/21 11:42 EQUATE MIGRAINE RELIEF Allergy Mild NUMB LIPS Uncoded 07/28/21 11:42 Ciprofloxacin HCl TABS Allergy Rash Uncoded 07/28/21 11:42 EQ Migraine Relief TABS Allergy . Uncoded 07/28/21 11:42 Home Medications Medication Instructions Recorded Confirmed Type cetirizine 10 mg tablet 10 mg PO QAM 05/09/18 07/28/21 History acetaminophen 500 mg tablet 1,000 mg PO Q6H PRN 03/04/19 07/28/21 History (Tylenol Extra Strength) betamethasone dipropionate 0.05 % 1 appln TOPICAL BID PRN #1 gm 03/04/19 07/28/21 History topical cream cholecalciferol (vitamin D3) 50 4,000 units PO QAM cap 03/04/19 07/28/21 History mcg (2,000 unit) capsule levonorgestrel 20 mcg/24 hours (7 1 device IU UD 09/12/19 07/28/21 History yrs) 52 mg intrauterine device (Mirena) albuterol sulfate 90 mcg/actuation 2 puff INHALATION Q6H PRN #18 gm 09/29/20 07/28/21 Rx aerosol inhaler aspirin 81 mg tablet,delayed 81 mg PO QAM 10/17/20 07/28/21 History release (Adult Aspirin Regimen) clobetasol 0.05 % topical cream 1 applic TOPICAL BID PRN #45 g 04/06/21 07/28/21 Rx hydrochlorothiazide 25 mg tablet 12.5 mg PO DAILY PRN tab 04/06/21 07/28/21 History metoprolol succinate 25 mg 37.5 mg PO QAM #90 tab 05/28/21 07/28/21 Rx tablet,extended release 24 hr levothyroxine 200 mcg tablet 200 mcg PO DAILYBB 07/28/21 07/28/21 History levothyroxine 50 mcg tablet 50 mcg PO DAILYBB 07/28/21 07/28/21 History Past Med/Surg History Medical History Acquired equinovarus deformity Allergic rhinitis Arthritis Asthma Chiari malformation type I Erosive (osteo)arthritis Hypertension Hypothyroidism Kidney stones, calcium oxalate Morbidly obese Osteoarthritis Palmoplantar keratoderma Physical deconditioning Prediabetes Pustular psoriasis palms, sole Recurrent cellulitis of lower extremity Severe obstructive sleep apnea Shortness of breath on exertion Symptomatic PVCs Venous insufficiency (chronic) (peripheral) Surgical History History of incision and drainage (11/2015) S/P section (2009) S/P dilation and curettage Family History Mother Psoriasis Asthma Depression Gallbladder disease Lymphoma Menieres disease Father Asthma Diabetes Hypertension Kidney stones Lymphoma Menieres disease Sister Kidney stones Aunt Breast cancer Grandfather Myocardial infarction Other Colorectal cancer Denies family history of Ovarian cancer Prostate cancer Lung cancer Social History Smoking Status: Never smoker Second Hand Exposure: No; Hx Alcohol Use: No Hx Substance Use: No Preferred Language: Guine[place] Communication Ability: Effective Visual Impairment: Limited Hearing Ability: Normal [employer] Sales Professional Required: No Beliefs That Will Affect Care: None marital status: Current Living Situation: Spouse Current Living Situation Comment: lives at home with spouse, child and pets current occupational status: employed current occupation: [employer] How many Children do You have: 1 Feels Safe at Home: Yes Childhood Exposure to Second-Hand Smoke: Yes caffeine: Yes (coffee- soda) during the past year weight has: increased > 10 lbs Dental Care, Regularly: Yes Physical Activity Frequency: Does not Exercise Physical Activity Frequency Comment: limited by physical condition Seatbelt Use: always Sunscreen Use: Yes Assistive Devices: CPAP and Glasses Review of Systems Constitutional: no fever, no chills, no weakness, no weight loss and no weight gain Eyes: as per Subjective / HPI Respiratory: no cough, no chest congestion, no dyspnea and no dyspnea on exertion Cardiovascular: no chest pain, no orthopnea, no palpitations, no lightheadedness and no edema Gastrointestinal: no abdominal pain, no nausea, no vomiting, no constipation and no diarrhea/loose stools Genitourinary: no dysuria, no difficulty urinating, no urinary frequency, no urinary hesitancy, no urinary urgency and no flank pain Musculoskeletal: no back pain, no neck pain, no joint pain, no stiffness and no myalgia Integumentary: no rash Neurologic: + loss of sensation, + tingling, + numbness, + paresthesia and + abnormal speech; no gait abnormality, no unsteadiness, no falls, no generalized weakness, no paralysis, no seizure-like activity, no headache(s) and no confusion Physical Exam Constitutional: cooperative; no acute distress Neck: trachea midline, no thyromegaly Respiratory: normal respiratory effort Auscultation: lungs clear to auscultation bilaterally; no crackles, no rales, no rhonchi and no wheezes Cardiovascular: Rate/Rhythm: regular rate and regular rhythm Heart Sounds: normal S1 and normal S2 Gastrointestinal (Abdomen): Inspection/Auscultation: abdomen normal to inspection Percussion/Palpation: abdomen soft; abdomen nontender, no guarding, abdomen not rigid and no hepatosplenomegaly Skin: no rashes, warm and dry Neurologic: moves all extremities and awake; + CN's not intact (minimal R lower facial droop, R tongue deviation) and no focal motor deficits Speech / Cognition: normal speech Results & Data Results & Data ([facility]) Vital Signs (Past 12 Hours) Vital Signs Temp Pulse Pulse Resp BP BP Pulse Ox 07/28/21 13:00 65 16 129/99 07/28/21 12:30 67 17 07/28/21 12:00 70 15 07/28/21 11:30 66 15 07/28/21 11:03 73 16 07/28/21 10:54 98 07/28/21 10:30 70 24 07/28/21 10:21 72 17 07/28/21 10:15 75 18 150/105 H 98 07/28/21 09:33 37.3 C 74 20 155/109 H 98 Laboratory Results Home Medications Medication Instructions Recorded Confirmed Last Taken cetirizine 10 mg tablet 10 mg PO QAM 05/09/18 07/28/21 07/28/21 acetaminophen 500 mg tablet 1,000 mg PO Q6H PRN 03/04/19 07/28/21 09/18/20 03:00 (Tylenol Extra Strength) betamethasone dipropionate 0.05 % 1 appln TOPICAL BID PRN #1 gm 03/04/19 07/28/21 Unknown topical cream cholecalciferol (vitamin D3) 50 4,000 units PO QAM cap 03/04/19 07/28/21 07/28/21 mcg (2,000 unit) capsule levonorgestrel 20 mcg/24 hours (7 1 device IU UD 09/12/19 07/28/21 07/28/21 yrs) 52 mg intrauterine device (Mirena) albuterol sulfate 90 mcg/actuation 2 puff INHALATION Q6H PRN #18 gm 09/29/20 07/28/21 07/27/21 aerosol inhaler aspirin 81 mg tablet,delayed 81 mg PO QAM 10/17/20 07/28/21 07/28/21 release (Adult Aspirin Regimen) clobetasol 0.05 % topical cream 1 applic TOPICAL BID PRN #45 g 04/06/21 07/28/21 07/26/21 hydrochlorothiazide 25 mg tablet 12.5 mg PO DAILY PRN tab 04/06/21 07/28/21 Unknown metoprolol succinate 25 mg 37.5 mg PO QAM #90 tab 05/28/21 07/28/21 07/28/21 tablet,extended release 24 hr levothyroxine 200 mcg tablet 200 mcg PO DAILYBB 07/28/21 07/28/21 07/28/21 levothyroxine 50 mcg tablet 50 mcg PO DAILYBB 07/28/21 07/28/21 07/28/21 PG Care Time/CCT Total # of Minutes Spent Total Time Spent with Patient: Total time spent is greater than 50% in coordination of care (as documented) at patient's floor/unit and/or counseling patient: Coding Level of Care Code INT OBSERVATION CARE 70M LVL 3 Diagnoses Facial droop R29.810 Thoracic radiculopathy M54.14 Chiari malformation type I G93.5
[2021-07-28] MEDS ORDERED: ALBUTEROL HFA 8 GM INHALER INH PRN (18:24)
[2021-07-28] MEDS ORDERED: hydroCHLOROthiazide 25 MG TAB PO PRN (18:24)
[2021-07-28] MEDS ORDERED: PHARMACIST DISCHARGE MED REC CONSULT PRN (18:24)
[2021-07-28] MEDS ORDERED: ACETAMINOPHEN 500 MG TAB PO PRN (18:57)
--- NOTE | 2021-07-28 21:18 | Electrocardiogram Report ---
Test Reason : Blood Pressure : / mmHG Vent. Rate : 083 BPM Atrial Rate : 083 BPM P-R Int : 176 ms QRS Dur : 090 ms QT Int : 368 ms P-R-T Axes : 033 -06 039 degrees QTc Int : 432 ms Poor data quality, interpretation may be adversely affected Normal sinus rhythm Normal ECG When compared with ECG of 06-SEP-2018 11:46, No significant change was found Confirmed by Ignacio Ash ([id number]) on 07/28/2021 9:17:58 PM Referred By: REFERRED SELF Confirmed By:Ignacio Ash
[2021-07-29 05:50] LABS: Basophils # (auto) 0.02 K/uL (0-0.2); Basophils % (auto) 0.3 %; Eosinophils # (auto) 0.23 K/uL (0-0.5); Eosinophils % (auto) 3.3 %; Hematocrit (blood only) 42.3 % (37-47); Hemoglobin 14.1 g/dL (12.0-16.0); Immature Granulocytes # (auto) 0.01 K/uL (0.00-0.02); Immature Granulocytes % (auto) 0.1 %; Lymphocytes # (auto) 2.33 K/uL (1.2-3.4); Lymphocytes % (auto) 33.8 %; Mean Corpuscular Hemoglobin 29.8 pg (25-34); Mean Corpuscular Hgb Conc 33.3 g/dL (32-36); Mean Corpuscular Volume 89.4 fL (80-100); Mean Platelet Volume 9.1 fL (7.4-10.4); Monocytes # (auto) 0.64 K/uL (0.11-0.59); Monocytes % (auto) 9.3 %; Neutrophils # (auto) 3.67 K/uL (1.4-6.5); Neutrophils % (auto) 53.2 %; Platelet Count 202 K/uL (130-400); RDW Coefficient of Variation 12.5 % (11.5-14.5); RDW Standard Deviation 40.5 fL (36.4-46.3); Red Blood Count 4.73 M/uL (4.2-5.4)
[2021-07-29 06:12] LABS: Chol HDL Ratio 4.8; Creatinine Clr Calc Pharmacy 133.1 ml/min; Est GFR (Non-African American) 94.9 ml/min
[2021-07-29] MEDS ORDERED: LEVOTHYROXINE SODIUM 200 MCG TABLET PO SCH (06:30)
[2021-07-29] MEDS ORDERED: LEVOTHYROXINE SODIUM 50 MCG TABLET PO SCH (06:30)
--- NOTE | 2021-07-29 08:08 | Magnetic Resonance Report ---
MRI OF THE BRAIN WITHOUT CONTRAST CLINICAL HISTORY: Facial droop. Chiari malformation. COMPARISON STUDY: MRI of the brain June 17, 2021. TECHNIQUE: Utilizing a 1.5 Beth magnet and dedicated coil, multiplanar, multiecho imaging of the bra in was performed without IV contrast. FINDINGS: There are no foci of restricted diffusion to suggest acute infarct. No acute intracranial h emorrhage, midline shift or mass effect is present. 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 Peg-like configuration of the cerebellar tons ils is unchanged. There is no hydrocephalus. No intracranial masses are identified on this unenhanced exam. No parenchymal signal abnormality is present. Calvarial signal is within normal limits. Orbits are unremarkable on this unenhanced exam. There is no fluid within mastoid air cells. Sinuses are un remarkable. Please note that the MRIs of the cervical and thoracic spines will be reported separately . IMPRESSION: 1. No acute intracranial findings. No change in appearance of the brain. 2. No change in appearance of the Chiari I malformation since previous MRIs. ACT 112: Negative or not required by law. Electronically signed by: Rai Pierre M.D. 07/29/2021 8:07 AM
--- NOTE | 2021-07-29 08:10 | Neurology Consultation ---
Date of Consultation July 29, 2021 Assessment & Plan (1) Chiari malformation type I: (2) Syrinx of spinal cord: (3) Cervical radicular pain: (4) Carpal tunnel syndrome on both sides: (5) Facial droop: (6) Numbness and tingling: patient had an episode of right facial numbness, slight right facial droop, and some dysesthesias with swallowing following sneezing July 28. The symptoms have resolved. Currently she has pain, numbness, and dysesthesias indicate like distribution across her shoulders down to her mid thoracic spine and across her chest anteriorly including down both arms in a patchy distribution. There is no weakness of a focal or generalized nature, no reflex changes and her gait and balance are normal. She has no incontinence of urine. The patient has a significant Chiari malformation with cerebellar tonsils 1.3 cm below the level of the foramen magnum bilaterally. I believe this Chiari is symptomatic with headaches and other symptoms following exertion, coughing, sneezing, or laughing. In addition she has a significant cervical and thoracic syrinx from C3 down to T8-9 which was not present in 2017. I believe that her frequent coughing throughout the course of 2020 has greatly increased her pressure associated with the Chiari malformation leading to the syrinx. There is no history of cord trauma or infection. I do not believe this patient has had cerebral vascular symptoms and there is no evidence for stroke. I would not label this as a TIA. the patient has some cervical and thoracic radicular pain and I cannot entirely exclude radiculopathy. Otherwise I believe this is all related to her syrinx. She has carpal tunnel syndrome history bilaterally, post surgical release on the left. I do not believe the carpal tunnel Syndrome is active at this time. The patient had hypertension on admission to the ER but her blood pressures quite normal now. She has significant obstructive sleep apnea on CPAP. Recommendations: 1. Avoid heavy lifting, exertion, and coughing / sneezing if possible. 2. The patient needs to see her neurosurgeon, Dr. Dodson at [facility] in [facility], as soon as is feasible. 3. I see no need for additional neurologic testing or treatment at this time but we can follow her as an outpatient after she has seen her neurosurgeon Overall, I spent a total of 120 minutes with this case including review of records, review of MRI films, direct evaluation the patient at bedside, and discussion of the case with the patient and RN at bedside as well as Dr. Bartlett including differential diagnosis and treatment options. History of Present Illness Reason for Consultation: Patient is a 46-year-old, who I was asked to see at the request of Dr. Butt, for neurologic consultation regarding possible stroke / TIA. Requesting Physician: Dr. Butt Attending Physician: Royer Bartlett, History of Present Illness This patient has a known Chiari malformation discovered in 2016 by an MRI of the brain following headaches, dizziness, and neck pain triggered by epidural anesthesia in the summer of 2015. the MRI of the brain revealed a Chiari 1 malformation measuring 1.3 cm below the foramen magnum bilaterally. There was no hydrocephalus or other brain pathology. MRI of the cervical spine at that time was unremarkable with no syrinx. I reviewed these films with Dr. Pierre and concur that there was no syrinx at all in 2017. Over the years she has had a dull pressure generalize headache with bending over or heavy lifting. Coughing, laughing, or sneezing would do the same thing. This has gradually gotten worse over time. Patient has known severe obstructive sleep apnea on CPAP. I saw the patient in July of 2020 for upper extremity numbness and pain. She had moderate bilateral carpal tunnel syndromes and no evidence of cervical radiculopathy. in later July she underwent carpal tunnel syndrome release on the left by Dr. Bell with some success. She has not had the right done. In September of 2020 she had a Covid-19 infection and developed a significant respiratory illness and chronic cough. This has persisted throughout all of 2020 into early 2021. over the course of 2020 she noted increased left neck, shoulder, and arm pain and right greater than left thoracic pain which radiated from the upper thoracic spine all the way around to the breasts bilaterally. She saw Dr. Irene in April of [address] scan of the chest showed no significant pulmonary pathology. In June of 2021 she saw Alexsandra Alegre PA-C in [facility] and she was concerned about cervical and thoracic radiculopathy. She ordered a cervical and thoracic MRI but these have not been done yet. Over the last 3-4 weeks patient has had some increased cough and some pain and dysesthesias down the arms to the 4th and 5th digits. Over the last 1-2 weeks it is involved all fingers. She has decreased temperature sensation in the hands. Left seems worse than the right. She has neck and upper thoracic spine pain and numbness in a keep like fashion across her shoulder blades down across her upper thoracic spine bilaterally into the upper arms and down to the fingers. She has some low back pain as well. She has no incontinence of urine or stool. Her gait is unremarkable. She does not have weakness otherwise. 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 She sneezed twice (rather significantly ) and had the immediate onset of right face dysesthesias and questionable right facial droop. She could not swallow very well on the right side (or at least it felt funny to try and swallow on that side). She had increased dysesthesias of her hands as well. She arrived to the emergency room July 28 at 9:33 a.m., with a temperature of 37.3, pulse 74 regular, respiratory 20 and comfortable, blood pressure 155/109, and O2 saturation 98%. Exam was unremarkable for any focal neurologic deficits. CBC, Chem profile, and urinalysis were unremarkable. Chest x-ray was unremarkable. CT scan of the cervical spine was unremarkable. CT angiography of the head and neck were normal with no vascular anomalies. MRI of the brain revealed no stroke or acute pathology. The Chiari was the same as previous MRIs and there was no hydrocephalus or white matter changes. I reviewed these films with Dr. Pierre. MRI of the cervical and thoracic spines revealed a significant, large, syrinx from C3 down to T8/9. The spinal cord was straight without the usual curvature. I reviewed these films with Dr. Pierre. Currently the patient has the dysesthesias across her upper back and upper extremities as before. She denies numbness of the right face or swallowing problems. Allergies Allergy/AdvReac Type Severity Reaction Status Date / Time clindamycin Allergy Intermediate Rash, Hives Verified 07/28/21 11:42 sulfamethoxazole Allergy Intermediate Rash Verified 07/28/21 11:42 [From Bactrim] trimethoprim [From Bactrim] Allergy Intermediate Rash Verified 07/28/21 11:42 vancomycin Allergy Unknown ITCHING, Verified 07/28/21 11:42 RASH doxycycline Allergy Rash Verified 07/28/21 11:42 levofloxacin [From Levaquin] Allergy Rash Verified 07/28/21 11:42 EQUATE MIGRAINE RELIEF Allergy Mild NUMB LIPS Uncoded 07/28/21 11:42 Ciprofloxacin HCl TABS Allergy Rash Uncoded 07/28/21 11:42 EQ Migraine Relief TABS Allergy . Uncoded 07/28/21 11:42 Home Medications Medication Instructions Recorded Confirmed Type cetirizine 10 mg tablet 10 mg PO QAM 05/09/18 07/28/21 History acetaminophen 500 mg tablet 1,000 mg PO Q6H PRN 03/04/19 07/28/21 History (Tylenol Extra Strength) betamethasone dipropionate 0.05 % 1 appln TOPICAL BID PRN #1 gm 03/04/19 07/28/21 History topical cream cholecalciferol (vitamin D3) 50 4,000 units PO QAM cap 03/04/19 07/28/21 History mcg (2,000 unit) capsule levonorgestrel 20 mcg/24 hours (7 1 device IU UD 09/12/19 07/28/21 History yrs) 52 mg intrauterine device (Mirena) albuterol sulfate 90 mcg/actuation 2 puff INHALATION Q6H PRN #18 gm 09/29/20 07/28/21 Rx aerosol inhaler aspirin 81 mg tablet,delayed 81 mg PO QAM 10/17/20 07/28/21 History release (Adult Aspirin Regimen) clobetasol 0.05 % topical cream 1 applic TOPICAL BID PRN #45 g 04/06/21 07/28/21 Rx hydrochlorothiazide 25 mg tablet 12.5 mg PO DAILY PRN tab 04/06/21 07/28/21 History metoprolol succinate 25 mg 37.5 mg PO QAM #90 tab 05/28/21 07/28/21 Rx tablet,extended release 24 hr levothyroxine 200 mcg tablet 200 mcg PO DAILYBB 07/28/21 07/28/21 History levothyroxine 50 mcg tablet 50 mcg PO DAILYBB 07/28/21 07/28/21 History Patient History Medical History Acquired equinovarus deformity Allergic rhinitis Arthritis Asthma Chiari malformation type I Erosive (osteo)arthritis Hypertension Hypothyroidism Kidney stones, calcium oxalate Morbidly obese Osteoarthritis Palmoplantar keratoderma Physical deconditioning Prediabetes Pustular psoriasis palms, sole Recurrent cellulitis of lower extremity Severe obstructive sleep apnea Shortness of breath on exertion Symptomatic PVCs Venous insufficiency (chronic) (peripheral) Surgical History History of incision and drainage (11/2015) To right brannon; 11/2015 S/P section (2009) 2009 S/P dilation and curettage Family History Mother Psoriasis Asthma Depression Gallbladder disease Lymphoma Menieres disease Father Asthma Diabetes Hypertension Kidney stones Lymphoma Menieres disease Sister Kidney stones Aunt Breast cancer Grandfather Myocardial infarction Other Colorectal cancer Denies family history of Ovarian cancer Prostate cancer Lung cancer Social History Smoking Status: Never smoker Second Hand Exposure: No; Hx Alcohol Use: No Hx Substance Use: No Preferred Language: Beninese Communication Ability: Effective Visual Impairment: Limited Hearing Ability: Normal Bicycle Ii Assembler Required: No Beliefs That Will Affect Care: None marital status: Current Living Situation: Spouse Current Living Situation Comment: lives at home with spouse, child and pets current occupational status: employed 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 How many Children do You have: 1 Feels Safe at Home: Yes Childhood Exposure to Second-Hand Smoke: Yes caffeine: Yes (coffee- soda) during the past year weight has: increased > 10 lbs Dental Care, Regularly: Yes Physical Activity Frequency: Does not Exercise Physical Activity Frequency Comment: limited by physical condition Seatbelt Use: always Sunscreen Use: Yes Assistive Devices: CPAP and Glasses Review of Systems 2 Constitutional: no fever, no fatigue and no weakness Eyes: no diplopia, no eye pain and no worsening vision Ear, Nose, Mouth, Throat: no ear pain, no tinnitus, no hearing loss, no dizziness, no snoring, no hoarseness and no dysphagia Respiratory: + cough; no dyspnea Cardiovascular: no chest pain, no palpitations and no lightheadedness Gastrointestinal: no abdominal pain, no nausea and no vomiting Genitourinary: no dysuria, no urinary frequency and no urinary incontinence Musculoskeletal: + back pain, + neck pain and + radicular pain; no joint pain and no myalgia Integumentary: no rash and no lesions Neurologic: + numbness; no gait abnormality, no localized weakness, no generalized weakness, no tingling, no tremor(s), no abnormal movements, no headache(s), no abnormal speech, no confusion and no memory loss Psychiatric: no depression, no irritability, no anxiety, no difficulty concentrating, no confusion and no hallucinations Endocrine: no fatigue and no flushing Hematologic / Lymphatic: no easy bleeding and no easy bruising Allergy / Immunological: no urticaria and no problem reported Exam (Neuro) Physical Exam: The patient is right-handed. The patient is awake, alert, and attentive. Speech is normal without any aphasia or dysarthria. The patient can name objects, repeat phrases, and has normal spontaneous speech. Mentation and thought processes are intact, with orientation to person, place and time, and normal fund of knowledge. Attention and concentration are normal. Mood and affect are normal and appropriate. General appearance and grooming are normal. Short and long-term memory are intact. The discs are sharp with positive venous pulsations bilaterally. There are no exudates, hemorrhages, or blood vessel changes seen. Pupils are 4 mm bilaterally and reactive to light. Extraocular eye muscles are intact without nystagmus. Visual acuity and visual karimi seem normal grossly to confrontation. There are no deficits to sensation in the face in all 3 distributions of the fifth cranial nerve bilaterally. Corneal reflexes are positive bilaterally. Facial strength and symmetry was normal bilaterally. Hearing seems normal bilaterally. Palate moves well without asymmetry. There is normal sternocleidomastoid and trapezius (shoulder shrug) strength bilaterally. Tongue is midline with good strength bilaterally. Neck has a full range of motion without discomfort. There are no cervical bruits bilaterally. There are no cranial or ocular bruits. Heart is without murmur. There is a regular rhythm and rate. Cervical, thoracic, and lumbar spine are nontender to palpation. Gait is narrow based, with good arm swing, turns, and stance. Balance is normal eyes open or closed. With outstretched arms there is no drift. There are no resting, postural, or action tremors. There is no ataxia with finger to nose testing. There is good facility in the hands. No other abnormal involuntary movements are noted. Motor strength is 5/5 diffusely in the arms bilaterally including deltoids, biceps, triceps, brachioradialis, wrist flexors and extensors, supervisor lens generating, and intrinsic hand muscles. Motor strength is 5/5 diffusely in the legs bilaterally including hip flexors, quadriceps, hamstrings, gastrocnemius, tibialis anterior, tibialis posterior, and Peroneii muscles. Toe extensors are normal and there is good bulk in the extensor digitorum brevis muscles bilaterally. The limbs have good tone without rigidity or spasticity. There is no atrophy noted in the muscles. Muscle bulk is normal, there is no tenderness to palpation, no myotonia to percussion, and no fasciculations seen. Sensory examination Reveals decreased sensation to pin and touch posteriorly f rom the lower neck down to the mid thoracic spine bilaterally including the tops of the shoulders. Also includes both arms on the underside and dorsal aspects down to the fingers. It is a patchy distribution throughout the arms. Anterior chest is mildly impaired and under her right arm is numb. The legs are spared. Reflexes are 2/4 in the biceps, triceps, brachioradialis, quadriceps, and Achi lles tendons bilaterally. There is no clonus bilaterally. Toes are downgoing with plantar stimulation bilaterally. Peripheral pulses are present and of normal quality distally in all 4 limbs. There is no peripheral edema noted in the limbs. Results & Data ([facility]) Vital Signs (Past 12 Hours) Vital Signs Pulse Resp BP Pulse Ox 07/29/21 06:30 74 16 119/87 96 07/29/21 02:00 56 L 18 92/48 L 96 PG Care Time/CCT Total # of Minutes Spent Total Time Spent with Patient: Total time spent is greater than 50% in coordination of care (as documented) at patient's floor/unit and/or counseling patient: Coding Level of Care Code 57529 Office/Outpt Visit, Est Diagnoses Chiari malformation type I G93.5 Syrinx of spinal cord G95.0 Cervical radicular pain M54.12 Carpal tunnel syndrome on both sides G56.03 Facial droop R29.810 Numbness and tingling R20.0; R20.2 Time Spent (min) 120 Comment Add modifiers as able
--- NOTE | 2021-07-29 08:37 | Magnetic Resonance Report ---
CERVICAL SPINE MRI HISTORY: Pain and numbness within bilateral arms. Known syrinx. radiculopathy TECHNIQUE: Multiplanar multisequence MRI of the cervical spine was performed without the use of contr ast. COMPARISON STUDY: Cervical spine MRI 05/25/2017. FINDINGS: Straightening of the cervical spine. No fracture or subluxation. Normal marrow signal inten sity seen throughout the visualized osseous structures. Disc spaces are preserved. No disc herniation s identified. Redemonstration of the Chiari I malformation which extends approximately 1.1 cm inferio r to the foramen magnum. This results in mild mass effect along the cervicomedullary junction which i s also unchanged. Interval development of cystic expansion of the central cord from the C3 level and extending inferiorly into the thoracic spinal cord. This measures up to 9 mm in diameter at the T3-T4 level. This is consistent with a syrinx. C2-C3: No significant central canal or neural foraminal narrowing. C3-C4: No significant central canal or neural foraminal narrowing. C4-C5: No significant central canal or neural foraminal narrowing. C5-C6: No significant central canal or neural foraminal narrowing. C6-C7: No significant central canal or neural foraminal narrowing. C7-T1: No significant central canal or neural foraminal narrowing. IMPRESSION: 1. No change in the Chiari I malformation which extends approximately 1.1 cm inferior to the foramen magnum and results in mild mass effect along the cervicomedullary junction. 2. Interval development of extensive cystic expansion of the central cord from the C3 level and exten ding inferiorly throughout the visualized thoracic spinal cord. This measures up to 9 mm in diameter and likely represents a syrinx. ACT 112: Negative or not required by law. Electronically signed by: Rogelio Joyner M.D. 07/29/2021 9:48 AM
[2021-07-29] MEDS ORDERED: ENOXAPARIN INJ 40 MG/0.4 ML SYR SQ SCH (09:00)
[2021-07-29] MEDS ORDERED: CETIRIZINE HCL 10 MG TABLET PO SCH (09:00)
[2021-07-29] MEDS ORDERED: METOPROLOL SUCC 25MG EXT REL TAB PO SCH (09:00)
[2021-07-29] MEDS ORDERED: ASPIRIN 81 MG ECTAB PO SCH (09:00)
[2021-07-29] MEDS ORDERED: CHOLECALCIFEROL 1,000 UNITS 25 MCG TAB PO SCH (09:00)
--- NOTE | 2021-07-29 09:01 | Magnetic Resonance Report ---
MRI OF THE LUMBAR SPINE WITHOUT IV CONTRAST CLINICAL HISTORY: Radiculopathy. COMPARISON STUDY: Chest CT dated 04/17/2021. TECHNIQUE: MRI of the thoracic spine is performed utilizing various T1 and T2-weighted sequences in t he axial and sagittal planes. IV contrast was not administered for this examination. FINDINGS: Vertebral body height and alignment are maintained throughout the thoracic spine. Normal ma rrow signal intensity is preserved throughout the imaged bony structures. The spinous processes appea r intact. No destructive bony lesion is seen. There is mild disc desiccation in the midthoracic regio n. The disc spaces are preserved. There is no disc herniation or acquired compromise of the central c anal. The thoracic spinal cord is significantly expanded by a large syrinx. This measures over 20 cm in length, extending from the lower cervical region to the superior endplate of T10 and measures up t o 9 mm in maximum diameter. The conus medullaris terminates at the level of L1. There is no MRI evide nce of high-grade neural foraminal narrowing throughout the thoracic region. The paraspinous soft tis sues are normal in appearance. There is no evidence of pleural effusion. A Chiari malformation is not ed on the roll handler sequence. IMPRESSION: 1. The thoracic spinal cord is expanded by a large syrinx as detailed above. This is likely related t o a Chiari malformation. 2. There is no disc herniation, acquired compromise of the central canal, or significant neural satinder inal narrowing throughout the thoracic region. 3. No destructive bony process is identified. Dictated: 07/29/2021 7:54 AM Transcribed: 07/29/2021 8:44 AM Merle [id number] [email or web address] Electronically signed by: Tyler Senior M.D. 07/29/2021 9:00 AM
[2021-07-29] MEDS ORDERED: STROKE PATIENT DISCHARGE STA (13:27)
--- NOTE | 2021-07-29 18:32 | Discharge Summary ---
Date of Service July 29, 2021 Admission HPI Per Admitting Provider This is a 46-year-old female with past medical history of Chiari malformation that presents today with right lower facial droop. Patient is a decent historian. Patient has a longstanding issue with Chiari malformation along with C/T radiculopathy. She follows with Dr. Goel locally as well as with a neurologist in [place]. She tells me that she has been having worsening radiculopathy in the bilateral upper extremities. This is in the inferior aspects of both arms and radiates down to her digits. The fifth digit is numb and she feels that the fourth digit on both sides is becoming more numb as well. She does not note any weakness in her hands or arms. An MRI to rule out syrinx was recommended but she has not yet had these performed. Earlier today, patient was at work. She sneezed hard and noticed soon after that she had a little right lower facial droop. There is also a small amount of paresthesia at the right lip/cheek. There was a minimal amount of dysarthria with this per the patient although I did not detect any during my interview. Patient tells me that this is since resolved but still feels she has a facial droop. Patient also noted some "swallowing difficulties ". She says it just "did not feel" but denied any or choking or dysphagia. Case was discussed between the ER physician and Dr. Dwyer who is on-call for neurology. Recommendation is for the patient to be placed in a monitored observation for MRI and further work-up to consider CVA. Principal Diagnosis chiari malformation and syrinx Discharge Exam gen aao pleasant nad heent nc at mmm breathing unlabored no accessory msucles good effort skin no rashes no pallor or icterus mental status intact see neuro notes for better description of neuro exam Discharge Data Allergies Allergy/AdvReac Type Severity Reaction Status Date / Time clindamycin Allergy Intermediate Rash, Hives Verified 07/28/21 11:42 sulfamethoxazole Allergy Intermediate Rash Verified 07/28/21 11:42 [From Bactrim] trimethoprim [From Bactrim] Allergy Intermediate Rash Verified 07/28/21 11:42 vancomycin Allergy Unknown ITCHING, Verified 07/28/21 11:42 RASH doxycycline Allergy Rash Verified 07/28/21 11:42 levofloxacin [From Levaquin] Allergy Rash Verified 07/28/21 11:42 EQUATE MIGRAINE RELIEF Allergy Mild NUMB LIPS Uncoded 07/28/21 11:42 Ciprofloxacin HCl TABS Allergy Rash Uncoded 07/28/21 11:42 EQ Migraine Relief TABS Allergy . Uncoded 07/28/21 11:42 Consultations 07/28/21 16:21 ED Decision to Admit Stat 07/28/21 18:24 Consult Neurology Routine 07/29/21 13:15 Burn CD for patient Routine 07/29/21 13:28 Consult Health Information Management Routine Ordered Studies 07/28/21 09:49 CT angio head wo/w Stat CT angio neck with con Stat CT cervical spine wo con Stat 07/28/21 15:31 MR brain wo con Routine MR thoracic spine wo con Routine MRI Cervical [MR cervical spine wo con] Routine 07/29/21 17:05 MR lumbar spine wo con Stat Hospital Course (1) Chiari malformation type I: and newly diagnosed (and clearly new since 2016) fairly large Cspine/Tspine syrinx plan per neurology most definitively sums up current situation: (1) Chiari malformation type I: (2) Syrinx of spinal cord: (3) Cervical radicular pain: (4) Carpal tunnel syndrome on both sides: (5) Facial droop: (6) Numbness and tingling: patient had an episode of right facial numbness, slight right facial droop, and some dysesthesias with swallowing following sneezing July 28. The symptoms have resolved. Currently she has pain, numbness, and dysesthesias indicate like distribution across her shoulders down to her mid thoracic spine and across her chest anteriorly including down both arms in a patchy distribution. There is no weakness of a focal or generalized nature, no reflex changes and her gait and balance are normal. She has no incontinence of urine. The patient has a significant Chiari malformation with cerebellar tonsils 1.3 cm below the level of the foramen magnum bilaterally. I believe this Chiari is symptomatic with headaches and other symptoms following exertion, coughing, sneezing, or laughing. In addition she has a significant cervical and thoracic syrinx from C3 down to T8-9 which was not present in 2017. I believe that her frequent coughing throughout the course of 2020 has greatly increased her pressure associated with the Chiari malformation leading to the syrinx. There is no history of cord trauma or infection. I do not believe this patient has had cerebral vascular symptoms and there is no evidence for stroke. I would not label this as a TIA. the patient has some cervical and thoracic radicular pain and I cannot entirely exclude radiculopathy. Otherwise I believe this is all related to her syrinx. She has carpal tunnel syndrome history bilaterally, post surgical release on the left. I do not believe the carpal tunnel Syndrome is active at this time. The patient had hypertension on admission to the ER but her blood pressures quite normal now. She has significant obstructive sleep apnea on CPAP. Recommendations: 1. Avoid heavy lifting, exertion, and coughing / sneezing if possible. 2. The patient needs to see her neurosurgeon, Dr. Dodson at [facility] in [facility], as soon as is feasible. 3. I see no need for additional neurologic testing or treatment at this time but we can follow her as an outpatient after she has seen her neurosurgeon Personally discussed the case with Concepcion at Dr. Dodson's office. She noted they also would like to have L-spine MRI to rule out tethered cord, although unlikely, would be quite helpful in surgical planning. Discussed with nurse navigator who was unable to get a clear answer on timeframe for doing this as an outpatient, after discussing this with the patient, we decided to order prior to discharge to ensure it can be done. Concepcion will be facilitating outpatient follow-up with neurosurgery within 2 weeks. Patient expresses good understanding, can certainly return to the hospital with any worsening symptoms, but appears stable for home as above. will ask that films be sent to her neurosurgeon: Dr Darryl Dodson; [address] Dept of Neurosurgery. [place], [place], [address] [phone] Total Time Total Time Spent Total Time Spent (In Minutes): >30 Discharge Plan Discharge Items Patient Disposition: Home - Self-Care Reason For Visit: FACIAL DROOP Discharge Diagnosis: chiari malformation and syrinx causing sensory symptoms Condition on Discharge: Good Activity: Per Instructions section Non-emergency contact: Primary Care Provider and Specialist Call non-emergency contact if: you have any medication questions and your symptoms worsen Follow-up/Referrals: Denae Harper, [Primary Care Provider] - Diet: Regular Addtl Attending Provider Instructions: You were admitted to the hospital for evaluation of neurologic symptoms. It appears that your symptoms were related to the syrinx as well as possibly to the Chiari malformation. Fortunately we aren't seeing anything catastrophic/concerning to require immediate transfer for intervention - but we are definitely working on speeding things up. As of this writing, i have spoken to coordinators in Dr Dodson's office but am waiting for a callback from Concepcion HERNANDEZ. The goal is to get you there [facility] as an outpatient. Between now and then, take it easy - don't do anything to increase intracranial pressure (and really anything that increases intraabdominal and intrathoracic pressure to be safe) - so no heavy lifting, no squatting/lifting, move slowly when getting up, and as odd as it may be - keep your mouth more wide open when you cough/sneeze so that there's less backpressure. We've also sent an Rx for tessalon to try to help with the cough - as we discussed, if it's not helping noticeably after ~4-5 doses then i would quit taking it. Since I'm not sure yet when you're seeing Dr Dodson, i wrote the workn ote for an arbitrary 2 weeks - but Dr Harper can extend it if needed. Pending Studies at Discharge: No Stand-Alone Forms: My [facility] [employer], Work/School Release, Smoking Cessation Medications and DC Order Prescriptions: New benzonatate 100 mg capsule 100 mg PO TID PRN (Reason: cough) Qty: 20 RF: 0 Continued metoprolol succinate 25 mg tablet extended release 24 hr 37.5 mg PO QAM Qty: 90 RF: 1 cholecalciferol (vitamin D3) 2,000 unit capsule 4,000 units PO QAM RF: 0 betamethasone dipropionate 0.05 % cream 1 appln topical BID PRN (Reason: Skin Irritation) Qty: 1 RF: 0 Mirena 20 mcg/24 hours (5 yrs) 52 mg intrauterine device 1 device IU UD RF: 0 albuterol sulfate 90 mcg/actuation HFA aerosol inhaler 2 puff inhalation Q6H PRN (Reason: shortness of breath) Qty: 18 RF: 2 aspirin [Adult Aspirin Regimen] 81 mg tablet,delayed release (DR/EC) 81 mg PO QAM RF: 0 hydrochlorothiazide 25 mg tablet 12.5 mg PO DAILY PRN (Reason: Edema) RF: 0 clobetasol 0.05 % cream 1 applic topical BID PRN (Reason: psoriasis) Qty: 45 RF: 1 cetirizine 10 mg tablet 10 mg PO QAM RF: 0 acetaminophen [Tylenol Extra Strength] 500 mg tablet 1,000 mg PO Q6H PRN (Reason: Fever Or Pain) RF: 0 levothyroxine 50 mcg tablet 50 mcg PO DAILYBB RF: 0 levothyroxine 200 mcg tablet 200 mcg PO DAILYBB RF: 0 Discharge Orders: Discharge Order (Routine); Ordered 07/29/21 Ordered By: Royer Tracy/Other Patient Handouts: Loss of Sensation: Safety Tips, Using Blood Thinners Anticoagulants, Understanding Spinal Cord Disease, Anatomy of a Normal Spine Admission Data Admit Date/Time: 07/28/21 15:31 Attending Provider: Royer Bartlett Admit Provider: Dean Butt Primary Care Provider: Denae Harper Other Providers: Dean Butt ; Zach Goel Other Interventions: Discharge Summary Assessment (RN) Last Done: 07/29/21 14:05 Coding Level of Care Code 88617 OBS Care - Discharge Diagnoses Chiari malformation type I G93.5
--- NOTE | 2021-07-29 20:54 | Magnetic Resonance Report ---
MR lumbar spine wo con CLINICAL HISTORY: Low back pain. Known thoracic syrinx. Evaluate for tethered cord. COMPARISON: MR of the thoracic spine from 07/28/2021 TECHNIQUE: Multiplanar multisequence images of the Lumbar Spine were performed without contrast. FINDINGS: There is no evidence for vertebral body fracture. The heights of the vertebral bodies are maintained. The vertebral bodies are in anatomic alignment. Homogeneous marrow signal is seen without evidence f or marrow edema or marrow replacement. The conus appears normal. The reported thoracic syrinx does not extend into the conus. Anatomic nerve roots are seen extending into the lumbar spine spinal canal. There is no definite MR evidence for a tethered cord. T12-L1: The disc space height is maintained. There are no focal disc protrusions or extrusions ident ified. The thecal sac and epidural fat are maintained. The neural foramen are patent bilaterally. Th ere is no evidence for nerve root encroachment. The facet joints are within normal limits. L1-2: The disc space height is maintained. There are no focal disc protrusions or extrusions identi fied. The thecal sac and epidural fat are maintained. The neural foramen are patent bilaterally. The re is no evidence for nerve root encroachment. The facet joints are within normal limits. L2-3: The disc space height is maintained. There are no focal disc protrusions or extrusions identi fied. The thecal sac and epidural fat are maintained. The neural foramen are patent bilaterally. The re is no evidence for nerve root encroachment. The facet joints are within normal limits. L3-4: The disc space height is maintained. There are no focal disc protrusions or extrusions identi fied. The thecal sac and epidural fat are maintained. The neural foramen are patent bilaterally. The re is no evidence for nerve root encroachment. The facet joints are within normal limits. L4-5: The disc space height is maintained. There are no focal disc protrusions or extrusions identi fied. The thecal sac and epidural fat are maintained. The neural foramen are patent bilaterally. The re is no evidence for nerve root encroachment. The facet joints are within normal limits. L5-S1: There is mild disc space narrowing and disc desiccation with diffuse bulging of the annulus m easuring approximately 3 mm. There are no focal disc protrusions or extrusions identified. Due to t he increase amount of epidural fat anterior to the thecal sac at this level, no encroachment upon the thecal sac is seen. The neural foramen are patent bilaterally. There is no evidence for nerve root e ncroachment. There is mild hypertrophic facet joint disease present bilaterally. IMPRESSION: 1. No definite MR evidence for tethered cord. 2. Degenerative disc disease with bulging annulus at L5-S1 with no evidence for focal disc protrusion /herniation or nerve root encroachment. 3. Mild hypertrophic facet joint disease is also seen at L5-S1. ACT 112: Negative or not required by law. Electronically signed by: Juan C Austin M.D. 07/29/2021 8:52 PM
== END 2021-07-29 21:00 | disposition home or self-care (01) ==
LOC: ED 09:26 → EDINP 09:26 → SUATTDRO 15:31 → EDINP 18:00